=== PATIENT | female | born 1970 | race Caucasian/White ===

== ENCOUNTER 2016-08-14 10:34 | Inpatient (IN) | payer MEDICAID ==
[2016-08-14] MEDS ORDERED: VANCOMYCIN INJ 1 GM in SODIUM CHLORIDE 0.9% 250 ML IV ONE (11:00)
[2016-08-14] MEDS ORDERED: LACTATED RINGERS 1,000 ML IV ONE ×3 (11:15→15:52)
[2016-08-14] MEDS ORDERED: MIDAZOLAM 2 MG/2 ML VIAL IVP ONE (12:30)
[2016-08-14] MEDS ORDERED: GLYCOPYRROLATE 1 MG/5 ML VIAL IVP ONE (12:30)
[2016-08-14] MEDS ORDERED: ONDANSETRON 4 MG/2 ML VIAL IVP ONE (12:30)
[2016-08-14] MEDS ORDERED: LIDOCAINE-PF 2% 10 ML AMP SUBQ ONE (12:30)
[2016-08-14] MEDS ORDERED: fentaNYL 100 MCG/2 ML VIAL IVP ONE (12:30)
[2016-08-14] MEDS ORDERED: ROCURONIUM 50 MG/5 ML VIAL IVP ONE (12:30)
[2016-08-14] MEDS ORDERED: PROPOFOL 200 MG/20 ML VIAL IVP ONE (12:30)
[2016-08-14] MEDS ORDERED: ACETAMINOPHEN 1,000 MG/100 ML VIAL IV ONE (12:30)
[2016-08-14] MEDS ORDERED: NEOSTIGMINE 1 MG/1 ML 10 ML MDV IVP ONE (12:30)
[2016-08-14] MEDS ORDERED: DEXAMETHASONE 4 MG/ML VIAL IVP ONE (12:30)
[2016-08-14] MEDS ORDERED: ePHEDrine 50 MG/ML AMP IVP ONE (12:30)
[2016-08-14] MEDS ORDERED: SUCCINYLCHOLINE 200 MG/10 ML VIAL IVP ONE (12:30)
[2016-08-14] MEDS ORDERED: BUPIVACAINE 0.5% PF 30 ML VIAL SUBQ ONE ×2 (13:14)
[2016-08-14] MEDS ORDERED: LIDOCAINE 1%-EPI 1:100000 20 ML MDV SUBQ ONE ×2 (13:14)
[2016-08-14] MEDS ORDERED: KETOROLAC 15 MG/ML VIAL ONE ×2 (16:58→17:01)
[2016-08-14] MEDS: HYDROmorphone 1 MG/ML SYRINGE ONE ×2 (17:00→17:45)
[2016-08-14] MEDS ORDERED: ONDANSETRON 4 MG/2 ML VIAL ONE (17:14)
[2016-08-14] MEDS ORDERED: MORPHINE 2 MG/ML SYRINGE IVP PRN (17:54)
[2016-08-14] MEDS ORDERED: ONDANSETRON 4 MG/2 ML VIAL IVP PRN (17:54)
[2016-08-14] MEDS ORDERED: ACETAMINOPHEN 1,000 MG/100 ML 100 ML IV PRN (17:54)
[2016-08-14] MEDS ORDERED: ACETAMINOPHEN 325 MG TABLET PO PRN (17:54)
[2016-08-14] MEDS ORDERED: PROCHLORPERAZINE 10 MG/2 ML VIAL IVP PRN (17:54)
[2016-08-14] MEDS: D5.45NS W/20 MEQ KCL 1,000 ML IV SCH (20:04)
[2016-08-14] MEDS: HYDROcod/ACETAM 5/325 MG TABLET PO PRN (21:04)
[2016-08-14] MEDS: DOCUSATE SODIUM 250 MG CAPSULE PO SCH (21:04)
[2016-08-14] MEDS: buPROPion SR 100 MG TABLET PO SCH (21:04)
[2016-08-14] MEDS: SPIRONOLACTONE 25 MG TABLET PO SCH (21:05)
[2016-08-14] MEDS: hydrOXYzine PAMOATE 25 MG CAPSULE PO SCH (21:05)
[2016-08-14] MEDS: MINOCYCLINE HCL 100 MG PO SCH (21:06)
[2016-08-14] MEDS: metFORMIN 500 MG TABLET PO SCH (21:06)
[2016-08-14] MEDS: FAMOTIDINE 20 MG/50 ML 50 ML IV SCH (21:35)
[2016-08-14] MEDS: LORazepam 2 MG/ML SYRINGE IVP PRN (22:28)
[2016-08-14] MEDS: busPIRone 5 MG TABLET PO SCH (22:32)
[2016-08-14] MEDS: IBUPROFEN 600 MG TABLET PO PRN (22:33)
[2016-08-14] MEDS: GABAPENTIN 300 MG CAPSULE PO SCH (22:34)
[2016-08-14] MEDS: SODIUM CHLORIDE FLUSH 0.9% 10 ML SYRINGE IVP SCH (22:36)
[2016-08-14] MEDS ORDERED: CITALOPRAM 10 MG TABLET PO SCH (23:00)
[2016-08-15] MEDS: IBUPROFEN 600 MG TABLET PO PRN (00:36)
[2016-08-15] MEDS: LORazepam 2 MG/ML SYRINGE IVP PRN (01:43)
[2016-08-15] MEDS: D5.45NS W/20 MEQ KCL 1,000 ML IV SCH (06:03)
[2016-08-15] MEDS: GABAPENTIN 300 MG CAPSULE PO SCH (06:28)
[2016-08-15] MEDS: HYDROcod/ACETAM 5/325 MG TABLET PO PRN ×2 (06:29→11:28)
[2016-08-15] MEDS: SODIUM CHLORIDE FLUSH 0.9% 10 ML SYRINGE IVP SCH (06:41)
[2016-08-15] MEDS ORDERED: CETIRIZINE 10 MG TABLET PO SCH (09:00)
[2016-08-15] MEDS ORDERED: ARIPiprazole 5 MG TABLET PO SCH (09:00)
[2016-08-15] MEDS ORDERED: GLIMEPIRIDE 2 MG TABLET PO SCH (09:00)
[2016-08-15] MEDS ORDERED: CITALOPRAM 10 MG TABLET PO SCH (09:00)
[2016-08-15] MEDS ORDERED: lamoTRIgine 100 MG TABLET PO SCH (09:00)
[2016-08-15] MEDS ORDERED: busPIRone 5 MG TABLET PO SCH (09:00)
[2016-08-15] MEDS ORDERED: ENOXAPARIN 40 MG/0.4 ML SYRINGE SUBQ SCH (09:00)
[2016-08-15] MEDS ORDERED: ATENOLOL 25 MG TABLET PO SCH (09:00)
[2016-08-15] MEDS ORDERED: FEXOFENADINE 60 MG TABLET PO SCH (09:00)
[2016-08-15] MEDS: metFORMIN 500 MG TABLET PO SCH (09:15)
[2016-08-15] MEDS: hydrOXYzine PAMOATE 25 MG CAPSULE PO SCH (09:32)
[2016-08-15] MEDS: SPIRONOLACTONE 25 MG TABLET PO SCH (09:33)
[2016-08-15] MEDS: DOCUSATE SODIUM 250 MG CAPSULE PO SCH (09:34)
[2016-08-15] MEDS: buPROPion SR 100 MG TABLET PO SCH (09:35)
[2016-08-15] MEDS: busPIRone 5 MG TABLET PO SCH (09:35)
[2016-08-15] MEDS: FAMOTIDINE 20 MG/50 ML 50 ML IV SCH (09:42)
[2016-08-15] MEDS: MINOCYCLINE HCL 100 MG PO SCH (09:43)
== END 2016-08-15 12:20 | disposition home or self-care (01) | DRG 354 ==
PROC: 0WUF4JZ Supplement Abdominal Wall with Synthetic Substitute, Percutaneous Endoscopic Approach (ICD-10-PCS; principal; 2016-08-14 12:46)
DX: K43.2 Incisional hernia without obstruction or gangrene (principal); Z68.42 Body mass index [BMI] 45.0-49.9, adult; E11.43 Type 2 diabetes mellitus with diabetic autonomic (poly)neuropathy; K31.84 Gastroparesis; E66.9 Obesity, unspecified; R00.9 Unspecified abnormalities of heart beat; F31.9 Bipolar disorder, unspecified; F41.0 Panic disorder [episodic paroxysmal anxiety]; F98.8 Other specified behavioral and emotional disorders with onset usually occurring in childhood and adolescence; K42.9 Umbilical hernia without obstruction or gangrene; K66.0 Peritoneal adhesions (postprocedural) (postinfection); Z87.891 Personal history of nicotine dependence; Z85.828 Personal history of other malignant neoplasm of skin

== ENCOUNTER 2016-08-25 12:53 | Outpatient (CLI) | payer MEDICAID ==
[2016-08-25] MEDS ORDERED: IOPAMIDOL-300 100 ML VIAL IVP ONE (15:24)
[2016-08-25] MEDS ORDERED: IOPAMIDOL-300 50 ML VIAL PO ONE (15:24)
== END 2016-08-25 12:54 | disposition home or self-care (01) ==
DX: L02.211 Cutaneous abscess of abdominal wall (principal)
CPT/HCPCS: 74177; Q9967

== ENCOUNTER 2016-08-26 11:49 | Day surgery (SDC) | payer MEDICAID ==
[2016-08-26] MEDS ORDERED: LACTATED RINGERS 1,000 ML IV ONE ×2 (13:11→15:12)
[2016-08-26] MEDS ORDERED: ROCURONIUM 50 MG/5 ML VIAL IVP ONE (13:30)
[2016-08-26] MEDS ORDERED: ONDANSETRON 4 MG/2 ML VIAL IVP ONE (13:30)
[2016-08-26] MEDS ORDERED: PROPOFOL 200 MG/20 ML VIAL IVP ONE (13:30)
[2016-08-26] MEDS ORDERED: GLYCOPYRROLATE 1 MG/5 ML VIAL IVP ONE (13:30)
[2016-08-26] MEDS ORDERED: NEOSTIGMINE 1 MG/1 ML 10 ML MDV IVP ONE (13:30)
[2016-08-26] MEDS ORDERED: SUCCINYLCHOLINE 200 MG/10 ML VIAL IVP ONE (13:30)
[2016-08-26] MEDS ORDERED: LIDOCAINE-MPF 2% 5 ML VIAL IM ONE (13:30)
[2016-08-26] MEDS ORDERED: MIDAZOLAM 2 MG/2 ML VIAL IVP ONE (13:30)
[2016-08-26] MEDS ORDERED: fentaNYL 100 MCG/2 ML VIAL IVP ONE (13:30)
[2016-08-26] MEDS ORDERED: BUPIVACAINE 0.5% PF 30 ML VIAL INFIL ONE ×2 (13:54→14:17)
[2016-08-26] MEDS ORDERED: LIDOCAINE 1%-EPI 1:100000 20 ML MDV SUBQ ONE ×2 (13:55→14:17)
[2016-08-26] MEDS ORDERED: ONDANSETRON 4 MG/2 ML VIAL ONE (14:37)
[2016-08-26] MEDS ORDERED: PROMETHAZINE 25 MG/1 ML VIAL ONE (14:44)
[2016-08-26] MEDS ORDERED: oxyCOD/ACETAMIN 5 MG/325 MG TABLET PO ONE (15:55)
== END 2016-08-26 11:50 | disposition home or self-care (01) ==
PROC: 0J9800Z Drainage of Abdomen Subcutaneous Tissue and Fascia with Drainage Device, Open Approach (ICD-10-PCS; principal; 2016-08-26 13:00)
DX: L76.34 Postprocedural seroma of skin and subcutaneous tissue following other procedure (principal); Y83.8 Other surgical procedures as the cause of abnormal reaction of the patient, or of later complication, without mention of misadventure at the time of the procedure; E66.9 Obesity, unspecified; Z87.891 Personal history of nicotine dependence; Z68.43 Body mass index [BMI] 50.0-59.9, adult; G47.30 Sleep apnea, unspecified; E11.9 Type 2 diabetes mellitus without complications; Z79.84 Long term (current) use of oral hypoglycemic drugs; F41.9 Anxiety disorder, unspecified; F31.9 Bipolar disorder, unspecified; K21.9 Gastro-esophageal reflux disease without esophagitis; Z68.42 Body mass index [BMI] 45.0-49.9, adult
CPT/HCPCS: 10140; 76705; 87070; 87075; 87205; A9270; J7120

== ENCOUNTER 2016-10-12 15:10 | Outpatient (CLI) | payer MEDICAID ==
[2016-10-12] MEDS ORDERED: IOPAMIDOL-300 50 ML VIAL PO ONE (17:28)
[2016-10-12] MEDS ORDERED: IOPAMIDOL-300 100 ML VIAL IVP ONE (17:28)
== END 2016-10-12 15:11 | disposition home or self-care (01) ==
DX: E11.9 Type 2 diabetes mellitus without complications (principal)

== ENCOUNTER 2016-10-12 15:18 | Outpatient (CLI) | payer MEDICAID ==
[2016-10-12] MEDS ORDERED: IOPAMIDOL-300 100 ML VIAL IVP ONE (17:28)
[2016-10-12] MEDS ORDERED: IOPAMIDOL-300 50 ML VIAL PO ONE (17:28)
== END 2016-10-12 15:19 | disposition home or self-care (01) ==
DX: R10.9 Unspecified abdominal pain (principal); R23.4 Changes in skin texture; E11.9 Type 2 diabetes mellitus without complications
CPT/HCPCS: 36415; 74177; 80053; 83036; Q9967

== ENCOUNTER 2016-10-16 13:23 | Outpatient (CLI) | payer MEDICAID | END 2016-10-16 23:59 | DX: R06.09 Other forms of dyspnea (principal) ==

== ENCOUNTER 2017-01-06 13:03 | Outpatient (CLI) | payer MEDICAID ==
[2017-01-06 13:13] LABS: BASOPHILS % (AUTO) 0.7 %; EOSINOPHILS # (AUTO) 0.2 10^3/uL (0.0-0.7); EOSINOPHILS % (AUTO) 3.7 %; HCT - HEMATOCRIT 41.3 % (37.0-47.0); HGB - HEMOGLOBIN 14.1 g/dL (12.0-16.0); LYMPHOCYTES # (AUTO) 1.4 10^3/uL (1.5-3.5); LYMPHOCYTES % (AUTO) 21.4 %; MEAN CORPUSCULAR HEMOGLOBIN 32.1 pg (27.0-31.0); MEAN CORPUSCULAR HGB CONC 34.2 g/dL (32.0-36.0); MEAN CORPUSCULAR VOLUME 93.8 fL (81.0-99.0); MONOCYTES # (AUTO) 0.5 10^3/uL (0.0-1.0); MONOCYTES % (AUTO) 8.3 %; NEUTROPHILS # (AUTO) 4.2 10^3/uL (1.5-6.6); NEUTROPHILS % (AUTO) 65.9 %; RED BLOOD COUNT 4.41 10^6/uL (4.20-5.40); RED CELL DISTRIBUTION WIDTH 13.5 % (12.0-15.0); UNCORRECTED WHITE BLOOD COUNT 6.4 x10^3/uL; WHITE BLOOD COUNT 6.4 x10^3/uL (4.8-10.8)
== END 2017-01-06 13:04 | disposition home or self-care (01) ==
LOC: LAB 13:03
PROVIDERS: ATTEND Family Medicine
DX: R06.09 Other forms of dyspnea (principal)
CPT/HCPCS: 36415; 85025

== ENCOUNTER 2017-01-06 13:04 | Outpatient (CLI) | payer MEDICAID | END 2017-01-06 13:05 | disposition home or self-care (01) | LOC: RT 13:04 | PROVIDERS: ATTEND Family Medicine | DX: R06.09 Other forms of dyspnea (principal) | CPT/HCPCS: 36415; 85025; 94010; 94729 ==

== ENCOUNTER 2017-03-24 15:02 | Outpatient (CLI) | payer MEDICAID | END 2017-03-24 15:03 | disposition home or self-care (01) | LOC: SC 15:02 | PROVIDERS: ATTEND Nurse Practitioner Family | DX: G47.33 Obstructive sleep apnea (adult) (pediatric) (principal) | CPT/HCPCS: 99212; 99214 ==

== ENCOUNTER 2017-04-27 20:10 | Outpatient (CLI) | payer MEDICAID | END 2017-04-27 20:11 | disposition home or self-care (01) | LOC: LAB.WCP 20:10 | PROVIDERS: ATTEND Family Medicine | DX: N89.8 Other specified noninflammatory disorders of vagina (principal) | CPT/HCPCS: 87480; 87491; 87510; 87591; 87660 ==

== ENCOUNTER 2017-05-28 16:52 | Outpatient (CLI) | payer MEDICAID | END 2017-05-28 16:53 | disposition home or self-care (01) | LOC: LAB 16:52 | PROVIDERS: ATTEND Surgery | DX: Z01.812 Encounter for preprocedural laboratory examination (principal); K43.9 Ventral hernia without obstruction or gangrene | CPT/HCPCS: 36415; 80048; 85025 ==

== ENCOUNTER 2017-05-31 08:30 | Inpatient (IN) | payer MEDICAID ==
[2017-06-08] MEDS ORDERED: ceFAZolin 3 GM/20 ML SYRINGE ONE ×2 (10:59→12:06)
[2017-06-08] MEDS ORDERED: LACTATED RINGERS 1,000 ML IV ONE ×4 (11:49→22:07)
--- NOTE | 2017-06-08 12:59 | OPERATIVE REPORT ---
Operative Report - General Admit Date: 06/08/17 Planned Procedure: ventral hernia repair, transversus abdominus release, components separation Pre-Op Diagnosis: recurrent ventral hernia Procedure Performed: Excision of previous ventral mesh, lysis of adhesions, posterior components separation and vental hernia repair with mesh. - Procedure Note Primary Surgeon: becki Anesthesia Technique: General ET tube Drain/Tube Type: Prateek Dee round drain - Other Other Information/Narrative: INDICATION: This is a 47 year old female who presented with a recurrent ventral hernia. She has had an umbilical hernia repair many years ago; unsure if mesh was used, a right spegelian hernia repair with an underlay introperitoneal mesh , and recurrence at this site and laparoscopic removal of previous mesh and placement of intraperitoneal bridge mesh. She now has a recurrent midline ventral hernia whish causes her immobility secondary to pain. She lost 60 lbs in preparation for surgery, however, her BMI remains elevated at 49. Procedure: After obtaining informed consent the patient was taken to the operating room and a thoracic epidural inserted. She was subsequently intubated by anesthesia. 3 g of Ancef were administered. A alves catheter was inserted. She was then prepped and drapped in the usual sterile fashion and a timeout taken according to protocol. A midline incision was created above the umbilicus and extended approximately 12 cm in length and slightly below the umbilicus. The underliying hernia sac was encoutered. It was carefully entered avoiding underlying bowel. The hernia sac was dissected to the fascial edges anteriorly, then opened the length of the sac. Adherent bowel was dissected off the peritoneal surface and hernia sac. The hernia sac was then excised to the fascial margins. The Peritoneum was then grasped with a Thornwood clamp and incised exposing the rectus muscles.The retrorectal space was then created using a combination of blunt dissection and electrocautery. The space was created laterally approximately 15 cm anteriorly approximately 10 cm and posteriorly approximately 10 cm. This was performed on each side of the abdominal wall. On the left side of the abdominal wall was only able to achieve approximately 10 cm of lateral extension of the retrorectal space due to the previously repaired hernia and mesh at this location and extensive scarring.The peritoneum and posterior rectus sheath were then reapproximated using a running #2 PDS suture.A 30 cm x 30 cm polypropylene Mesh was then selected for placement. This was trimmed to accommodate the created space. This was then placed in the retrorectal space. The anterior rectus sheath was then grasped with Toñito clamps and the subcutaneous tissue was dissected off of the anterior rectus sheath for approximately 2 cm circumferentially. The mesh was then sutured through the anterior abdominal wall using interrupted 0 Prolene sutures in a circumferential fashion. The anterior rectus fascia was then reapproximated using interrupted 0 PDS sutures in a [id number] Fashion. A 15 Macanese round KAM drain was inserted through the lateral abdominal wall into the subcutaneous tissue.The subcutaneous tissue was reapproximated with interrupted 3-0 Vicryl sutures. The skin was closed with running 4-0 Monocryl. The KAM drain was secured into place with a 3-0 silk.A María VAC dressing was then applied. The patient was subsequently extubated and taken to the recovery room in stable condition. Estimated blood loss: 100 cc Complications: None Specimens: None
[2017-06-08] MEDS ORDERED: ROCURONIUM 50 MG/5 ML VIAL IVP ONE (13:00)
[2017-06-08] MEDS ORDERED: LIDOCAINE-MPF 2% 5 ML VIAL IM ONE (13:00)
[2017-06-08] MEDS ORDERED: NEOSTIGMINE 1 MG/1 ML 10 ML MDV IVP ONE (13:00)
[2017-06-08] MEDS ORDERED: PROPOFOL 200 MG/20 ML VIAL IVP ONE (13:00)
[2017-06-08] MEDS ORDERED: MIDAZOLAM 2 MG/2 ML VIAL IVP ONE (13:00)
[2017-06-08] MEDS ORDERED: METOCLOPRAMIDE 10 MG/2 ML VIAL IVP ONE (13:00)
[2017-06-08] MEDS ORDERED: GLYCOPYRROLATE 1 MG/5 ML VIAL IVP ONE (13:00)
[2017-06-08] MEDS ORDERED: fentaNYL 100 MCG/2 ML VIAL IVP ONE (13:00)
[2017-06-08] MEDS ORDERED: DEXAMETHASONE 4 MG/ML VIAL IVP ONE (13:00)
[2017-06-08] MEDS ORDERED: ONDANSETRON 4 MG/2 ML VIAL IVP ONE (13:00)
[2017-06-08] MEDS ORDERED: fent/BUPIV 2 MCG/0.125% 250 ML EP PRN ×2 (15:11→23:35)
[2017-06-08] MEDS ORDERED: diphenhydrAMINE INJ 50 MG/ML VIAL IVP PRN (15:11)
[2017-06-08] MEDS ORDERED: NALBUPHINE 20 MG/ML AMP IVP PRN (15:11)
[2017-06-08] MEDS ORDERED: SODIUM CHLORIDE FLUSH 0.9% 10 ML SYRINGE IVP PRN (17:06)
[2017-06-08] MEDS ORDERED: ONDANSETRON 4 MG/2 ML VIAL IVP PRN (17:06)
[2017-06-08] MEDS ORDERED: KETOROLAC 30 MG/ML VIAL ONE (17:14)
[2017-06-08] MEDS ORDERED: ACETAMINOPHEN 1,000 MG/100 ML 100 ML IV ONE (17:15)
[2017-06-08] MEDS: ACETAMINOPHEN 1,000 MG/100 ML 100 ML IV SCH (18:33)
[2017-06-08 20:23] LABS: HEMOGLOBIN A1C 0.59 g/dL; HEMOGLOBIN A1C % 6.3 % (4.6-6.2)
[2017-06-08] MEDS: METOPROLOL TARTRATE 25 MG TABLET PO SCH (21:08)
[2017-06-08] MEDS: ATORVASTATIN 40 MG TABLET PO SCH (21:12)
[2017-06-08] MEDS: SPIRONOLACTONE 25 MG TABLET PO SCH (21:12)
[2017-06-08] MEDS: SODIUM CHLORIDE FLUSH 0.9% 10 ML SYRINGE IVP SCH (21:13)
[2017-06-08] MEDS: traZODone 50 MG TABLET PO SCH (22:30)
[2017-06-08] MEDS: GABAPENTIN 300 MG CAPSULE PO SCH (22:36)
[2017-06-08] MEDS: INSULIN ASPART 300 UNIT/3 ML PEN SUBQ SCH (22:36)
[2017-06-08] MEDS: buPROPion SR 100 MG TABLET PO SCH (22:36)
[2017-06-08] MEDS: OXYBUTYNIN 5MG TABLET PO SCH (22:37)
[2017-06-08] MEDS: ePHEDrine 50 MG/ML VIAL IVP ONE ×2 (22:37→23:27)
[2017-06-08] MEDS: LACTATED RINGERS 1,000 ML IV SCH (22:41)
--- NOTE | 2017-06-08 23:20 | MISCELLANEOUS PROVIDER NOTE ---
Miscellaneous Provider Note - - Note: Anesthesia note. this post op patient with a thoracic epidural running developed hypotension. The epidural was stopped she was given a fluid bolus of 1000 ml of lactated ringers and two boluses of 25 mg of ephedrine. When the blood pressure increased the epidural was restarted at 6 ml per hr and the bolus decreased to 1 ml every 10 minutes. Orders were given to stop the epidural if bp drops below 90 systolic and to give a 500 ml fluid bolus if bp drops below 80 systolic.
[2017-06-09] MEDS: ACETAMINOPHEN 1,000 MG/100 ML 100 ML IV SCH ×4 (00:06→17:15)
[2017-06-09] MEDS: LACTATED RINGERS 1,000 ML IV SCH ×2 (03:51→17:24)
[2017-06-09] MEDS: SODIUM CHLORIDE FLUSH 0.9% 10 ML SYRINGE IVP SCH ×3 (05:40→13:26)
[2017-06-09] MEDS ORDERED: LACTATED RINGERS 1,000 ML IV ONE (08:56)
[2017-06-09] MEDS ORDERED: ENOXAPARIN 40 MG/0.4 ML SYRINGE SUBQ SCH (09:00)
[2017-06-09] MEDS: MORPHINE 2 MG/ML SYRINGE IVP PRN ×5 (09:16→17:24)
[2017-06-09] MEDS: OXYBUTYNIN 5MG TABLET PO SCH ×2 (09:17→21:39)
[2017-06-09] MEDS: METOPROLOL TARTRATE 25 MG TABLET PO SCH (09:18)
[2017-06-09] MEDS: GABAPENTIN 300 MG CAPSULE PO SCH ×2 (09:18→21:39)
[2017-06-09] MEDS: SPIRONOLACTONE 25 MG TABLET PO SCH ×2 (09:19→21:39)
[2017-06-09] MEDS: buPROPion SR 100 MG TABLET PO SCH ×2 (09:19→21:39)
[2017-06-09] MEDS: lamoTRIgine 100 MG TABLET PO SCH (09:19)
[2017-06-09] MEDS: ARIPiprazole 5 MG TABLET PO SCH (09:19)
[2017-06-09] MEDS: POLYETHYLENE GLYCOL 3350 17 GM PACKET PO SCH (09:20)
[2017-06-09] MEDS: INSULIN ASPART 300 UNIT/3 ML PEN SUBQ SCH ×4 (10:36→21:44)
[2017-06-09] MEDS: PRENATAL VITAMIN TABLET PO SCH (10:36)
--- NOTE | 2017-06-09 11:09 | PROVIDER PROGRESS NOTE ---
Subjective - General Admit Date: 06/08/17 Procedure Date: 06/08/17 Post Op Days: 1 - Review of Systems Wound/Incisions: positive: No drainage Drain Type: KAM Drain Output Description: 40 cc serosanguinous General: positive: Other (abdominal pain) Pulmonary: positive: No symptoms Cardiovascular: positive: No symptoms Gastrointestinal: positive: Nausea Genitourinary: positive: No symptoms - Other Other Information/Narrative: Patient hypotensive overnight secondary to epidural. Epidural has been held and BP slightly improved. One episode of nausea. Patient tolerated breakfast. Objective - Patient Data Reviewed Vital Signs: Yes Vital Signs: Vital Signs x48h Pulse BP BP Pulse Ox 06/09/17 09:18 96/44 L 06/09/17 07:15 82 87/55 L 99 06/09/17 07:10 85 86/50 L 99 06/09/17 07:05 82 79/50 L 99 06/09/17 07:01 84 81/47 L 98 06/09/17 06:55 82 82/48 L 99 06/09/17 06:50 82 81/51 L 99 06/09/17 06:45 87 80/45 L 100 06/09/17 06:40 82 80/52 L 99 06/09/17 06:35 84 84/49 L 99 06/09/17 06:30 85 80/48 L 99 06/09/17 06:26 84 86/50 L 99 06/09/17 06:20 86 78/41 L 99 06/09/17 06:15 86 84/47 L 99 06/09/17 06:10 88 82/57 L 98 06/09/17 06:05 86 81/47 L 98 06/09/17 06:00 83 83/49 L 98 06/09/17 05:55 86 82/48 L 98 06/09/17 05:50 92 81/54 L 99 06/09/17 05:45 87 84/48 L 98 06/09/17 05:40 88 81/52 L 98 06/09/17 05:35 89 82/49 L 98 06/09/17 05:30 89 85/51 L 98 06/09/17 05:25 87 80/46 L 97 06/09/17 05:20 89 83/49 L 97 06/09/17 05:15 86 79/53 L 97 06/09/17 05:10 90 82/48 L 97 06/09/17 05:05 89 82/51 L 97 06/09/17 05:01 88 84/49 L 97 06/09/17 04:55 90 81/50 L 97 06/09/17 04:51 89 82/50 L 97 06/09/17 04:45 89 87/48 L 98 06/09/17 04:40 91 81/47 L 95 06/09/17 04:35 92 81/52 L 96 06/09/17 04:30 92 80/48 L 94 06/09/17 04:25 91 82/51 L 96 06/09/17 04:20 90 84/49 L 97 06/09/17 04:15 90 84/51 L 97 06/09/17 04:10 96 92/58 L 98 06/09/17 04:05 95 90/54 L 99 06/09/17 04:01 86 86/54 L 98 06/09/17 03:55 91 82/47 L 99 06/09/17 03:50 86 89/54 L 100 06/09/17 03:45 86 87/54 L 100 06/09/17 03:40 85 86/52 L 100 06/09/17 03:34 89 86/51 L 99 06/09/17 03:30 92 80/48 L 99 06/09/17 03:25 86 80/48 L 98 06/09/17 03:20 90 84/49 L 97 06/09/17 03:15 90 87/52 L 98 06/09/17 03:10 86 87/54 L 99 Weight: Weight 06/07/17 06/08/17 06/09/17 23:59 23:59 23:59 Weight (kg) 113.6 kg Intake & Output: Intake and Output Totals x24h 06/07/17 06/08/17 06/09/17 23:59 23:59 23:59 Intake Total 816.667 Output Total 710 1100 Balance -710 -283.333 - Lab Results Other Lab Results: Lab Results x24hrs 06/09/17 06/08/17 06/08/17 Range/Units 09:11 21:42 19:41 POC Whole Bld Glucose 161 H 143 H (70 - 100) mg/dL Glycated Hemoglobin 6.3 H (4.6-6.2) % Estim Average Glucose 134 H (70-100) 06/08/17 06/08/17 06/08/17 Range/Units 17:37 15:00 13:46 POC Whole Bld Glucose 134 H 145 H 113 H (70 - 100) mg/dL Glycated Hemoglobin (4.6-6.2) % Estim Average Glucose (70-100) 06/08/17 Range/Units 12:26 POC Whole Bld Glucose 111 H (70 - 100) mg/dL Glycated Hemoglobin (4.6-6.2) % Estim Average Glucose (70-100) - Current Medications Current Medications: Current Medications Generic Name Dose Route Start Last Admin Trade Name Freq PRN Reason Stop Dose Admin Aripiprazole 10 mg 06/09/17 09:00 06/09/17 09:19 Abilify PO 10 mg DAILY LISA Administration Atorvastatin Calcium 20 mg 06/08/17 21:00 06/08/17 21:12 Lipitor PO Not Given QPM LISA Bupropion HCl 200 mg 06/08/17 21:00 06/09/17 09:19 Wellbutrin Sr PO 200 mg BID LISA Administration Enoxaparin Sodium 40 mg 06/09/17 09:00 06/09/17 09:17 Lovenox SUBQ 40 mg DAILY LISA Administration Gabapentin 600 mg 06/08/17 21:00 06/09/17 09:18 Neurontin PO 600 mg BID LISA Administration Lactated Ringer's 1,000 mls @ 100 mls/hr 06/08/17 18:00 06/09/17 03:51 Lr IV 100 mls/hr .Q10H LISA Administration Acetaminophen 100 mls @ 400 mls/hr 06/08/17 18:00 06/09/17 05:37 Ofirmev IV 400 mls/hr Q6H LISA Administration Insulin Aspart 2 - 10 unit 06/08/17 21:00 06/09/17 10:36 Novolog SUBQ 2 unit 0800,1200,1700,2100 LISA Administration Protocol Lamotrigine 400 mg 06/09/17 08:00 06/09/17 09:19 Lamictal PO 400 mg QDBREAKFAST LISA Administration Metoprolol Tartrate 25 mg 06/08/17 21:00 06/09/17 09:18 Lopressor PO Not Given BID LISA Morphine Sulfate 2 mg 06/09/17 08:56 06/09/17 09:16 Morphine IVP 2 mg Q2H PRN Administration PAIN Oxybutynin Chloride 5 mg 06/08/17 21:00 06/09/17 09:17 Ditropan PO 5 mg BID [facility] Administration Polyethylene Glycol 17 gm 06/09/17 09:00 06/09/17 09:20 Miralax PO Not Given DAILY [facility] Multivit/Folic Acid/Iron 1 tab 06/09/17 08:00 06/09/17 10:36 Trinatal Rx 1 PO 1 tab DAILYWM [facility] Administration Ranitidine HCl 600 mg 06/08/17 21:00 06/09/17 09:18 Zantac PO 600 mg BID [facility] Administration Sodium Chloride 10 ml 06/08/17 22:00 06/09/17 05:40 Normal Saline Flush 0.9% IVP Not Given Q8HR [facility] Spironolactone 50 mg 06/08/17 21:00 06/09/17 09:19 Aldactone PO 50 mg BID [facility] Administration Trazodone HCl 100 mg 06/08/17 21:00 06/08/17 22:30 Desyrel PO Not Given QPM [facility] - Physical Exam Wound/Incisions: positive: Dressing dry and intact General Appearance: positive: No acute distress Respiratory: positive: No respiratory distress Cardiovascular: positive: Regular rate & rhythm Abdomen: positive: Other (soft, non-distended. prevena vac in place. KAM in place with serosanguinous drainage) Extremities: positive: No pedal edema Impression/Plan - Problem List Problem List: s/p posterior components separation and ventral hernia repair with mesh POD 1 - DC epidural secondary to hypotension. Start Morphine 2mg Q2H. Continue Tylenol and Torodol. - DC alves - Patient must ambulate today. Importance discussed with patient and RN. - SSI for glucose control. Oral meds will resume today - BP meds held for hypotension - Lovenox for DVT prophylaxis.
[2017-06-09] MEDS: GLIMEPIRIDE 2 MG TABLET PO SCH (12:04)
[2017-06-09] MEDS: KETOROLAC 30 MG/ML VIAL IVP PRN ×2 (13:25→21:44)
[2017-06-09] MEDS: ATORVASTATIN 40 MG TABLET PO SCH (21:38)
[2017-06-09] MEDS: traZODone 50 MG TABLET PO SCH (21:39)
[2017-06-10] MEDS ORDERED: SODIUM CHLORIDE FLUSH 0.9% 10 ML SYRINGE IVP ONE (00:35)
[2017-06-10] MEDS: ACETAMINOPHEN 1,000 MG/100 ML 100 ML IV SCH ×2 (00:44→06:23)
[2017-06-10] MEDS: LACTATED RINGERS 1,000 ML IV SCH (06:23)
[2017-06-10] MEDS: SODIUM CHLORIDE FLUSH 0.9% 10 ML SYRINGE IVP SCH (06:24)
[2017-06-10] MEDS: KETOROLAC 30 MG/ML VIAL IVP PRN (07:51)
--- NOTE | 2017-06-10 09:28 | Discharge Plan ---
Discharge Plan Disposition: 01 Home, Self Care Condition: Good Diet: Diabetic Activity Restrictions: No Restrictions Shower Restrictions: Yes (cover incision until vac dressing removed) Driving Restrictions: Yes (not while on narcotics) Assistance Devices: Walker Weight Bearing: Full Weight Instruction Topics: Hernia Surg Repair Additional Instructions or Follow Up instructions: Keep vac dressing covered while showering. Once vac dressing and KAM drain removed OK to shower and get incision wet. Monitor KAM drain output amount daily. Wash hands prior to touching incision. Once vac dressing removed cover dressing with dry gauze and change daily. No pool or sauna for 2 weeks post op. Wear abdominal binder during day for 2 weeks post op. No strenuous activity or lifting anything greater than 10 lbs for 6 weeks post op. Return to my office for redness around incision, drainage from incision, increasing abdominal pain, fever or chills. No Smoking: If you smoke, Please STOP! Call for help. Follow-up with: HENRI ARMANDO MD [Provider Admit Priv/Credential] - 06/14/17 10:30 am ( for vac removal and KAM drain removal)
[2017-06-10] MEDS: POLYETHYLENE GLYCOL 3350 17 GM PACKET PO SCH (10:02)
[2017-06-10] MEDS: GLIMEPIRIDE 2 MG TABLET PO SCH (10:02)
[2017-06-10] MEDS: PRENATAL VITAMIN TABLET PO SCH (10:02)
[2017-06-10] MEDS: GABAPENTIN 300 MG CAPSULE PO SCH (10:02)
[2017-06-10] MEDS: lamoTRIgine 100 MG TABLET PO SCH (10:03)
[2017-06-10] MEDS: OXYBUTYNIN 5MG TABLET PO SCH (10:03)
[2017-06-10] MEDS: buPROPion SR 100 MG TABLET PO SCH (10:03)
[2017-06-10] MEDS: ARIPiprazole 5 MG TABLET PO SCH (10:03)
[2017-06-10] MEDS: SPIRONOLACTONE 25 MG TABLET PO SCH (10:03)
[2017-06-10] MEDS: INSULIN ASPART 300 UNIT/3 ML PEN SUBQ SCH (10:06)
--- NOTE | 2017-06-10 11:25 | DISCHARGE SUMMARY ---
Discharge Summary Admit Date: 06/08/17 Discharge Date: 06/10/17 Discharging Provider: Jade Condition at Discharge: Good Discharge Disposition: 01 Home, Self Care - DIAGNOSES Admission Diagnoses: recurrent ventral hernia Discharge Diagnoses with Status of Each Condition: recurrent ventral hernia - HPI History of Present Illness: This is a 47 year old female with 3 prior abdominal hernia repair who presents with pain associated with a recurrent ventral hernia. She underwent an elective posterior components separation, excision of old mesh and ventral hernia repair with a sublay mesh. - HOSPITAL COURSE Hospital Course: The patient was transferred to the floor post operatively with an epidural and alves in place. She also had a prevena vac and KAM abdominal drain in place. She was hypotensive on POD 0 secondary to the epidural and this was discontinued. The epidural catheter and alves catheter were removed on POD 1. She was tolerating a regular diet and ambulating independently by post operative day 2. Her pain was well controlled on oral pain meds. - ALLERGIES Allergies/Adverse Reactions: Allergies Allergy/AdvReac Type Severity Reaction Status Date / Time adhesive tape Allergy Rash Verified 06/08/17 11:51 erythromycin base Allergy Rash Verified 05/28/17 16:32 Penicillins Allergy Anaphylaxis Verified 05/28/17 16:32 sulfamethoxazole Allergy Unknown Verified 05/28/17 16:32 [From Bactrim] trimethoprim [From Bactrim] Allergy Unknown Verified 05/28/17 16:32 - MEDICATIONS Home Medications: Ambulatory Orders Medication Instructions Recorded Confirmed Docusate Sodium [Dss] 250 mg PO BID 02/15/15 06/08/17 Glimepiride 2 mg PO DAILY 02/15/15 06/08/17 lamoTRIgine [Lamictal] 400 mg PO QDBREAKFAST 02/15/15 06/08/17 raNITIdine [Zantac] 600 mg PO BID 02/15/15 06/08/17 ARIPiprazole [Abilify] 10 mg PO DAILY 05/28/17 06/08/17 Gabapentin [Neurontin] 600 mg PO BID 05/28/17 06/08/17 Metoprolol Tartrate [Lopressor] 25 mg PO BID 05/28/17 06/08/17 Oxybutynin [Ditropan] 5 mg PO BID 05/28/17 06/08/17 Spironolactone [Aldactone] 50 mg PO BID 05/28/17 06/08/17 Trazodone HCl 100 mg PO QPM 06/07/17 06/08/17 buPROPion [Wellbutrin Sr] 200 mg PO BID 06/07/17 06/08/17 Atorvastatin Calcium 20 mg PO QPM 06/08/17 06/08/17 Pnv95/Ferrous Fumarate/FA 1 tab PO DAILY 06/08/17 06/08/17 [ Tablet] Miscellaneous Medical Supply 1 each DAILY #1 each 06/10/17 [Tablet Cutter] Walker [Ultra-Light Rollator] 1 each DAILY #1 each 06/10/17 - PHYSICAL EXAM AT DISCHARGE General Appearance: positive: No acute distress Respiratory: positive: No respiratory distress Cardiovascular: positive: Regular rate & rhythm Abdomen: positive: Non-tender, No distention Extremities: positive: No pedal edema Neurologic/Psychiatric: positive: Oriented x3 - FOLLOW UP Follow Up: Dr. Hansen for RN visit WednesdayJun 14. - TIME SPENT Time Spent in Discharge (Minutes): 30
[2017-06-10 11:52] VITALS: BP 107/72
== END 2017-06-10 13:44 | disposition home or self-care (01) | DRG 354 ==
LOC: MS3 06-08 10:57
PROVIDERS: ADMIT Surgery; ATTEND Surgery
PROC: 0WUF0JZ Supplement Abdominal Wall with Synthetic Substitute, Open Approach (ICD-10-PCS; principal; 2017-06-08 12:00)
DX: K43.2 Incisional hernia without obstruction or gangrene (principal); Z68.42 Body mass index [BMI] 45.0-49.9, adult; K66.0 Peritoneal adhesions (postprocedural) (postinfection); I95.2 Hypotension due to drugs; T50.905A Adverse effect of unspecified drugs, medicaments and biological substances, initial encounter; Y92.239 Unspecified place in hospital as the place of occurrence of the external cause; E66.01 Morbid (severe) obesity due to excess calories; G47.33 Obstructive sleep apnea (adult) (pediatric); F31.9 Bipolar disorder, unspecified; E11.42 Type 2 diabetes mellitus with diabetic polyneuropathy; Z79.84 Long term (current) use of oral hypoglycemic drugs
CPT/HCPCS: 36415; 83036

== ENCOUNTER 2017-06-07 13:42 | Outpatient (CLI) | payer MEDICAID ==
[2017-06-07 14:03] LABS: BASOPHILS # (AUTO) 0.1 10^3/uL (0.0-0.1); EOSINOPHILS # (AUTO) 0.2 10^3/uL (0.0-0.7); EOSINOPHILS % (AUTO) 3.8 %; HGB - HEMOGLOBIN 13.5 g/dL (12.0-16.0); LYMPHOCYTES # (AUTO) 1.4 10^3/uL (1.5-3.5); LYMPHOCYTES % (AUTO) 24.9 %; MEAN CORPUSCULAR HEMOGLOBIN 33.6 pg (27.0-31.0); MEAN CORPUSCULAR HGB CONC 34.7 g/dL (32.0-36.0); MEAN CORPUSCULAR VOLUME 96.8 fL (81.0-99.0); MEAN PLATELET VOLUME 6.7 fL (7.9-10.8); MONOCYTES # (AUTO) 0.5 10^3/uL (0.0-1.0); MONOCYTES % (AUTO) 8.7 %; NEUTROPHILS # (AUTO) 3.5 10^3/uL (1.5-6.6); NEUTROPHILS % (AUTO) 61.6 %; NUCLEATED RED BLOOD CELLS AUTO 0.1 /100WBC; RED BLOOD COUNT 4.03 10^6/uL (4.20-5.40); RED CELL DISTRIBUTION WIDTH 13.5 % (12.0-15.0); UNCORRECTED WHITE BLOOD COUNT 5.6 x10^3/uL; WHITE BLOOD COUNT 5.6 x10^3/uL (4.8-10.8)
[2017-06-07 14:12] LABS: CALCIUM 9.5 mg/dL (8.5-10.3); CREATININE 0.9 mg/dL (0.4-1.0)
== END 2017-06-07 13:43 | disposition home or self-care (01) ==
LOC: LAB 13:42
PROVIDERS: ATTEND Surgery
DX: Z01.812 Encounter for preprocedural laboratory examination (principal); K43.2 Incisional hernia without obstruction or gangrene
CPT/HCPCS: 36415; 80048; 85025

== ENCOUNTER 2017-07-13 15:51 | Outpatient (CLI) | payer MEDICAID ==
[2017-07-13 19:15] LABS: BASOPHILS # (AUTO) 0.1 10^3/uL (0.0-0.1); BASOPHILS % (AUTO) 0.9 %; EOSINOPHILS # (AUTO) 0.4 10^3/uL (0.0-0.7); EOSINOPHILS % (AUTO) 5.8 %; HGB - HEMOGLOBIN 13.1 g/dL (12.0-16.0); LYMPHOCYTES # (AUTO) 1.9 10^3/uL (1.5-3.5); LYMPHOCYTES % (AUTO) 24.5 %; MEAN CORPUSCULAR HEMOGLOBIN 33.2 pg (27.0-31.0); MEAN CORPUSCULAR HGB CONC 33.4 g/dL (32.0-36.0); MEAN CORPUSCULAR VOLUME 99.3 fL (81.0-99.0); MEAN PLATELET VOLUME 6.7 fL (7.9-10.8); MONOCYTES # (AUTO) 0.6 10^3/uL (0.0-1.0); MONOCYTES % (AUTO) 8.2 %; NEUTROPHILS # (AUTO) 4.6 10^3/uL (1.5-6.6); NEUTROPHILS % (AUTO) 60.6 %; PLT - PLATELET COUNT 526 10^3/uL (130-450); RED BLOOD COUNT 3.94 10^6/uL (4.20-5.40); RED CELL DISTRIBUTION WIDTH 13.7 % (12.0-15.0); WHITE BLOOD COUNT 7.7 x10^3/uL (4.8-10.8)
[2017-07-13 19:31] LABS: CALCIUM 9.2 mg/dL (8.5-10.3); CREATININE 1.1 mg/dL (0.4-1.0)
== END 2017-07-13 15:52 | disposition home or self-care (01) ==
LOC: LAB.WCP 15:51
PROVIDERS: ATTEND Physician Assistant Medical
DX: I95.9 Hypotension, unspecified (principal)
CPT/HCPCS: 36415; 80048; 85025

== ENCOUNTER 2017-09-15 11:42 | Outpatient (CLI) | payer MEDICAID ==
[2017-09-15 19:02] LABS: BASOPHILS % (AUTO) 1.1 %; EOSINOPHILS # (AUTO) 0.2 10^3/uL (0.0-0.7); EOSINOPHILS % (AUTO) 4.6 %; HGB - HEMOGLOBIN 13.5 g/dL (12.0-16.0); LYMPHOCYTES # (AUTO) 1.2 10^3/uL (1.5-3.5); LYMPHOCYTES % (AUTO) 26.6 %; MEAN CORPUSCULAR HEMOGLOBIN 32.9 pg (27.0-31.0); MEAN CORPUSCULAR HGB CONC 32.3 g/dL (32.0-36.0); MEAN PLATELET VOLUME 6.8 fL (7.9-10.8); MONOCYTES # (AUTO) 0.4 10^3/uL (0.0-1.0); MONOCYTES % (AUTO) 8.4 %; NEUTROPHILS # (AUTO) 2.7 10^3/uL (1.5-6.6); NEUTROPHILS % (AUTO) 59.3 %; PLT - PLATELET COUNT 350 10^3/uL (130-450); RED CELL DISTRIBUTION WIDTH 14.4 % (12.0-15.0); WHITE BLOOD COUNT 4.5 x10^3/uL (4.8-10.8)
[2017-09-15 19:26] LABS: HB2 TOTAL 14.4 g/dL; HEMOGLOBIN A1C 0.58 g/dL; HEMOGLOBIN A1C % 5.8 % (4.6-6.2)
[2017-09-15 19:28] LABS: ALBUMIN 3.9 g/dL (3.2-5.5); ALBUMIN/GLOBULIN RATIO 1.5 (1.0-2.2); ALKALINE PHOSPHATASE 78 IU/L (42-121); ALT ALANINE AMINOTRANSFERASE 26 IU/L (10-60); AST ASPARTATE AMINOTRANSFERASE 23 IU/L (10-42); BILIRUBIN,TOTAL 0.6 mg/dL (0.2-1.0); BUN - BLOOD UREA NITROGEN 7 mg/dL (6-20); CALCIUM 8.9 mg/dL (8.5-10.3); CARBON DIOXIDE - CO2 25 mmol/L (21-32); CHLORIDE 104 mmol/L (101-111); CHOL/HDL RATIO 6.4 (<4.4); CHOLESTEROL 219 mg/dL; CREATININE 0.8 mg/dL (0.4-1.0); GFR - MDRD 78 (>89); GLUCOSE 118 mg/dL (70-100); HDL CHOLESTEROL 34 mg/dL; LDL CHOLESTEROL,CALCULATED 154 mg/dL; LDL/HDL RATIO 4.5 (<4.4); SODIUM 138 mmol/L (135-145); TOTAL PROTEIN 6.5 g/dL (6.7-8.2); VLDL CHOLESTEROL 31 mg/dL
== END 2017-09-15 11:43 | disposition home or self-care (01) ==
LOC: LAB.WCP 11:42
PROVIDERS: ATTEND Family Medicine
DX: E11.9 Type 2 diabetes mellitus without complications (principal)
CPT/HCPCS: 36415; 80053; 80061; 83036; 83721; 85025

== ENCOUNTER 2017-11-09 14:19 | Outpatient (CLI) | payer MEDICAID ==
--- NOTE | 2017-11-09 17:32 | Mammography Report ---
DIGITAL DIAGNOSTIC BILATERAL MAMMOGRAM: 11/09/2017 CLINICAL INDICATION: Diffuse bilateral pain. TECHNIQUE: Bilateral CC, MLO, true lateral, laterally exaggerated craniocaudal views. This is the patient's baseline mammogram. FINDINGS: The breasts demonstrate scattered fibroglandular densities bilaterally. Coarse and punctate, typically benign calcifications are present. No suspicious masses, clustered microcalcifications, or regions of architectural distortion are identified. IMPRESSION: BENIGN FINDINGS. RECOMMENDATION: Routine annual screening unless otherwise clinically indicated. BI-RADS category 2 benign findings. STANDARD QUALIFYING STATEMENTS 1. This examination was reviewed with the aid of Computed-Aided Detection (CAD). 2. A negative or benign imaging report should not delay biopsy if clinically suspicious findings are present. Consider surgical consultation if warranted. More than 5% of cancers are not identified by imaging. 3. Dense breasts may obscure an underlying neoplasm. TD: 11/09/2017 15:18
== END 2017-11-09 14:20 | disposition home or self-care (01) ==
LOC: DI 14:19
PROVIDERS: ATTEND Family Medicine
DX: N64.4 Mastodynia (principal)
CPT/HCPCS: 77066

== ENCOUNTER 2018-04-18 08:00 | Outpatient (CLI) | payer MEDICAID ==
[2018-04-18 18:33] LABS: BASOPHILS % (AUTO) 0.9 %; EOSINOPHILS # (AUTO) 0.4 10^3/uL (0.0-0.7); EOSINOPHILS % (AUTO) 7.5 %; HGB - HEMOGLOBIN 12.5 g/dL (12.0-16.0); LYMPHOCYTES # (AUTO) 1.1 10^3/uL (1.5-3.5); LYMPHOCYTES % (AUTO) 20.7 %; MEAN CORPUSCULAR HEMOGLOBIN 34.1 pg (27.0-31.0); MEAN CORPUSCULAR HGB CONC 33.4 g/dL (32.0-36.0); MEAN CORPUSCULAR VOLUME 102.1 fL (81.0-99.0); MEAN PLATELET VOLUME 7.2 fL (7.9-10.8); MONOCYTES # (AUTO) 0.5 10^3/uL (0.0-1.0); MONOCYTES % (AUTO) 10.6 %; NEUTROPHILS # (AUTO) 3.1 10^3/uL (1.5-6.6); NEUTROPHILS % (AUTO) 60.3 %; PLT - PLATELET COUNT 269 10^3/uL (130-450); RED BLOOD COUNT 3.66 10^6/uL (4.20-5.40); RED CELL DISTRIBUTION WIDTH 14.9 % (12.0-15.0); WHITE BLOOD COUNT 5.1 x10^3/uL (4.8-10.8)
[2018-04-18 19:05] LABS: ALBUMIN 3.4 g/dL (3.2-5.5); ALBUMIN/GLOBULIN RATIO 1.2 (1.0-2.2); ALKALINE PHOSPHATASE 88 IU/L (42-121); ALT ALANINE AMINOTRANSFERASE 22 IU/L (10-60); AST ASPARTATE AMINOTRANSFERASE 23 IU/L (10-42); BILIRUBIN,TOTAL 0.4 mg/dL (0.2-1.0); BUN - BLOOD UREA NITROGEN 15 mg/dL (6-20); CALCIUM 8.6 mg/dL (8.5-10.3); CARBON DIOXIDE - CO2 23 mmol/L (21-32); CHLORIDE 106 mmol/L (101-111); CHOL/HDL RATIO 4.7 (<4.4); CHOLESTEROL 200 mg/dL; GFR - MDRD 60 (>89); GLUCOSE 108 mg/dL (70-100); HDL CHOLESTEROL 43 mg/dL; LDL CHOLESTEROL,CALCULATED 128 mg/dL; SODIUM 139 mmol/L (135-145); TOTAL PROTEIN 6.3 g/dL (6.7-8.2); VLDL CHOLESTEROL 29 mg/dL
[2018-04-18 19:33] LABS: HB2 TOTAL 12.6 g/dL; HEMOGLOBIN A1C 0.46 g/dL; HEMOGLOBIN A1C % 5.5 % (4.6-6.2)
== END 2018-04-18 08:01 | disposition home or self-care (01) ==
LOC: LAB.WCP 08:00
PROVIDERS: ATTEND Family Medicine
DX: E11.9 Type 2 diabetes mellitus without complications (principal)
CPT/HCPCS: 36415; 80053; 80061; 83036; 83721; 84443; 85025

== ENCOUNTER 2018-07-26 13:08 | Outpatient (CLI) | payer MEDICAID | END 2018-07-26 13:09 | disposition home or self-care (01) | LOC: SC 13:08 | PROVIDERS: ATTEND Nurse Practitioner Family | DX: G47.33 Obstructive sleep apnea (adult) (pediatric) (principal); G47.00 Insomnia, unspecified | CPT/HCPCS: 99212; 99215 ==

== ENCOUNTER 2018-09-20 08:00 | Outpatient (CLI) | payer MEDICAID ==
[2018-09-20 20:21] LABS: HB2 TOTAL 14.9 g/dL; HEMOGLOBIN A1C 0.72 g/dL; HEMOGLOBIN A1C % 6.6 % (4.6-6.2)
== END 2018-09-20 23:59 | disposition home or self-care (01) ==
LOC: LAB.WCP 08:00
PROVIDERS: ATTEND Family Medicine
DX: E11.9 Type 2 diabetes mellitus without complications (principal)
CPT/HCPCS: 36415; 83036

== ENCOUNTER 2019-02-07 08:00 | Outpatient (CLI) | payer MEDICAID ==
[2019-02-07 12:25] LABS: HB2 TOTAL 15.2 g/dL; HEMOGLOBIN A1C 0.89 g/dL; HEMOGLOBIN A1C % 7.5 % (4.6-6.2)
== END 2019-02-07 23:59 | disposition home or self-care (01) ==
LOC: LAB.WCP 08:00
PROVIDERS: ATTEND Family Medicine
DX: R60.9 Edema, unspecified (principal); E11.9 Type 2 diabetes mellitus without complications
CPT/HCPCS: 36415; 80048; 83036

== ENCOUNTER 2019-05-22 14:26 | Outpatient (CLI) | payer MEDICAID ==
[2019-05-22 19:23] LABS: HB2 TOTAL 14.9 g/dL; HEMOGLOBIN A1C 1.22 g/dL; HEMOGLOBIN A1C % 9.6 % (4.6-6.2)
== END 2019-05-22 23:59 | disposition home or self-care (01) ==
LOC: LAB.WCP 14:26
PROVIDERS: ATTEND Family Medicine
DX: E11.9 Type 2 diabetes mellitus without complications (principal)
CPT/HCPCS: 36415; 83036

== ENCOUNTER 2019-05-31 14:19 | Outpatient (CLI) | payer MEDICAID | END 2019-05-31 23:59 | disposition home or self-care (01) | LOC: LAB.R 14:19 | PROVIDERS: ATTEND Family Medicine | DX: S81.809A Unspecified open wound, unspecified lower leg, initial encounter (principal) | CPT/HCPCS: 87070; 87205 ==

== ENCOUNTER 2019-08-22 13:37 | Outpatient (CLI) | payer MEDICAID ==
--- NOTE | 2019-08-22 15:05 | SLEEP CARE CONSULTATION ---
Information from patient questionnaire entered by Renee Kilgore. I have reviewed and concur with the information entered by Renee Kilgore. This document represents the service I personally performed and the decisions made by me, Indira Barriga, RN, MSN, B[employer]PECTOR. History of Present Illness Previous diagnosis: Extremely Severe, Obstructive Sleep Apnea-Hypopnea Syndrome AHI: 147 Reason for follow up: first compliance after device update, annual Equipment type: CPAP Equipment obtained from: [employer] Mask style: Nasal (Dreamwear) Mask brand: Respironics Backup mask available: Yes (old ) Last cushion change: 1-2 months Prior sleep studies: Yes CPAP Compliance Data - Data Reviewed with Patient Average duration of nightly device use: 11h 9m Compliance rate %: 80 Current pressure setting (cmH2O): 14 Humidity setting: off Average residual AHI: 1.6 Subjective Patient concerns: reports: dry mouth, nose, throat (dry nose and mouth is rare. ). denies: aerophagia, mask discomfort, air blowing in eyes, mask leak noise, condensation in mask/hose, nasal congestion Observed to snore while using device: No Current pressure setting perceived as: comfortable On therapy, patient: reports: sleeping better, awakening more refreshed, being more awake and alert during the day, more rested overall. denies: drowsiness while driving Initial Pray Sleepiness Scale score: 8 Current Pray Sleepiness Scale score: 6 Allergies and Home Medications Home medication list reviewed: Yes (see changes ) Allergy and home medication list: Medication Name (generic/name brand) Strength & Dosage Lamictal (Lamotrigine) 200mg tab two daily Neurontin (Gabapentin) 300mg cap 3 tab twice daily Aldactone (Spironolactone) 100 mg tab one twice daily Glimepiride 4 mg tab one daily Metoprolol Tartrate 25mg tab one twice daily Detrol LA (Tolterodine Tartrate) 4mg cap one daily Trazodone HCL 100mg tab 1-2 daily at bedtime as needed Aripiprazole 15mg tab one daily Bupropion HCL ER 200mg tab one daily Metrozidazole 0.75% External Cream Apply to effected area daily Bactroban Ointment (Mupirocin Oint) Apply to effected area daily as needed Clobetasol Propionate 0.05% Ext. Ointment Apply to effected area daily as needed Elidel 1% External Cream Apply as directed Methocarbamol 500mg tab 1-2 q6hr as needed Tramadol HCL 50mg tab one as needed takes rarely Hydroxyzine Sammi 50mg tab one q6hr as needed Docusate Sodium 250mg cap one three times daily Tablet Tab one daily Ranitidine HCL 150 mg tab 1 tab twice daily TRi Chromium Picolinate Cap one twice daily metformin 1000mg 1 tab twice daily Anti-Itch Maximum Strength (Hydrocortisone) 1% Apply to affected area as needed Allergy List Penicillin Erythromycin Bactrim (Sulfamethoxazole-Trimethoprim) Review of Systems Review of systems same as previous: No (diabetes out of control, weight gain and edema ) Physical Exam Blood Pressure: 110/76 Cuff size: long Heart Rate: 100 O2 Saturation: 97 Height: 5 ft 5 in Weight: 326 lb 12.8 oz Weight change since last visit: gained 16 pounds Body Mass Index: 54.3 BMI Classification: Morbidly Obese Impression and Plan 1. Obstructive Sleep Apnea-Hypopnea Syndrome, extremely severe, with good treatment compliance and good apnea control. On CPAP therapy, the patient has better sleep quality and is more rested overall. She was to update her CPAP at last visit in June 2018 but was not updated until recently by new DME [facility]. She is pleased with new DME. Her first attempt to transfer to another DME, insurance was not covered. She is pleased with new CPAP function and quietness. Since she does not use the humidity, if dryness symptoms increase, she is advised to start the humidifier. I offered her saline nasal spray but unable to tolerate nasal sprays due to sensitive gag reflux. She can also use nasal cream such AYR as needed for nasal moisture. She has gained weight and aware of health risks of morbid obesity. She would like to lose weight. I explained how significant weight loss will reduce her apnea severity and CPAP pressure requirements. Thus symptoms to report for future pressure adjustment discussed. She is using CPAP about 11 hours a day on average. Last year she averaged 9.4 hours. She reports that she is not sleeping all that time. I explained that most people require 7-9 hours of sleep for optimal mental and physical function. She states that she works with a counselor / psychiatrist for depression and her medical provider for other medical problems. She feels she is only asleep about 9 hours of that time. She was advised if needs more sleep to contact her PCP to rule out medical cause and agreed with plan. Patient's apnea severity and rationale for treatment to reduce apnea, improve sleep quality and reduce cardiovascular and cerebrovascular events was reviewed. I also reviewed the benefit of consistent device use of CPAP for hypertension, diabetes, depression/anxiety. * Continue CPAP pressure at 14 cmH2O * start humidity if needed. * Notify me if snoring with mask or feeling that the pressure is too much or too little * Attempt to lose weight * Call this office if any problems using CPAP * Return for follow up in 1 year , or sooner if concerns arise I spent 100% of this visit face to face with the patient with greater than 50% of this was spent time counseling the patient and coordination of care.
[2019-08-22 15:06] VITALS: BP 110/76
== END 2019-08-22 13:38 | disposition home or self-care (01) ==
LOC: SC 13:37
PROVIDERS: ATTEND Nurse Practitioner Family
DX: G47.33 Obstructive sleep apnea (adult) (pediatric) (principal); E66.01 Morbid (severe) obesity due to excess calories; Z68.43 Body mass index [BMI] 50.0-59.9, adult
CPT/HCPCS: 99212; 99214

== ENCOUNTER 2020-04-25 08:00 | Outpatient (CLI) | payer MEDICAID ==
[2020-04-25 18:34] LABS: BASOPHILS # (AUTO) 0.1 10^3/uL (0.0-0.1); BASOPHILS % (AUTO) 1.3 %; EOSINOPHILS # (AUTO) 0.6 10^3/uL (0.0-0.7); EOSINOPHILS % (AUTO) 8.8 %; HGB - HEMOGLOBIN 15.6 g/dL (12.0-16.0); LYMPHOCYTES # (AUTO) 0.9 10^3/uL (1.5-3.5); LYMPHOCYTES % (AUTO) 14.2 %; MEAN CORPUSCULAR HEMOGLOBIN 31.3 pg (27.0-31.0); MEAN CORPUSCULAR HGB CONC 32.4 g/dL (32.0-36.0); MEAN CORPUSCULAR VOLUME 96.6 fL (81.0-99.0); MEAN PLATELET VOLUME 9.1 fL (7.9-10.8); MONOCYTES # (AUTO) 0.6 10^3/uL (0.0-1.0); MONOCYTES % (AUTO) 10.2 %; NEUTROPHILS # (AUTO) 4.1 10^3/uL (1.5-6.6); PLT - PLATELET COUNT 356 10^3/uL (130-450); RED BLOOD COUNT 4.98 10^6/uL (4.20-5.40); RED CELL DISTRIBUTION WIDTH 13.6 % (12.0-15.0); WHITE BLOOD COUNT 6.3 x10^3/uL (4.8-10.8)
[2020-04-25 18:57] LABS: ALBUMIN 4.2 g/dL (3.2-5.5); ALBUMIN/GLOBULIN RATIO 1.2 (1.0-2.2); ALKALINE PHOSPHATASE 113 IU/L (42-121); ALT ALANINE AMINOTRANSFERASE 64 IU/L (10-60); AST ASPARTATE AMINOTRANSFERASE 57 IU/L (10-42); BUN - BLOOD UREA NITROGEN 16 mg/dL (6-20); CALCIUM 9.7 mg/dL (8.5-10.3); CARBON DIOXIDE - CO2 21 mmol/L (21-32); CHLORIDE 103 mmol/L (101-111); CHOL/HDL RATIO 6.5 (<4.4); CHOLESTEROL 261 mg/dL; GLUCOSE 158 mg/dL (70-100); HDL CHOLESTEROL 40 mg/dL; LDL CHOLESTEROL,CALCULATED 171 mg/dL; LDL/HDL RATIO 4.3 (<4.4); SODIUM 138 mmol/L (135-145); TOTAL PROTEIN 7.6 g/dL (6.7-8.2); VLDL CHOLESTEROL 50 mg/dL
[2020-04-25 20:06] LABS: HEMOGLOBIN A1c% 7.1 % (4.27-6.07)
== END 2020-04-25 23:59 | disposition home or self-care (01) ==
LOC: LAB.WCP 08:00
PROVIDERS: ATTEND Family Medicine
DX: E11.9 Type 2 diabetes mellitus without complications (principal)
CPT/HCPCS: 36415; 80053; 80061; 82043; 82570; 83036; 83721; 84443; 85025

== ENCOUNTER 2020-04-29 08:00 | Outpatient (CLI) | payer MEDICAID ==
[2020-04-29 12:45] LABS: CREATININE,URINE 152.2 mg/dL
[2020-04-29 13:00] LABS: MICROALBUMIN,URINE < 0.2 mg/dL (0-300.0)
== END 2020-04-29 23:59 | disposition home or self-care (01) ==
LOC: LAB.R 08:00
PROVIDERS: ATTEND Family Medicine
DX: E11.9 Type 2 diabetes mellitus without complications (principal)
CPT/HCPCS: 82043; 82570

== ENCOUNTER 2020-07-31 08:00 | Outpatient (CLI) | payer MEDICAID ==
[2020-07-31 13:49] LABS: ALBUMIN 3.6 g/dL (3.2-5.5); ALBUMIN/GLOBULIN RATIO 1.4 (1.0-2.2); ALKALINE PHOSPHATASE 106 IU/L (42-121); ALT ALANINE AMINOTRANSFERASE 41 IU/L (10-60); AST ASPARTATE AMINOTRANSFERASE 47 IU/L (10-42); BILIRUBIN,TOTAL 0.6 mg/dL (0.2-1.0); BUN - BLOOD UREA NITROGEN 12 mg/dL (6-20); CALCIUM 9.6 mg/dL (8.5-10.3); CARBON DIOXIDE - CO2 22 mmol/L (21-32); CHLORIDE 105 mmol/L (101-111); CHOL/HDL RATIO 5.1 (<4.4); CHOLESTEROL 148 mg/dL; GLUCOSE 118 mg/dL (70-100); HDL CHOLESTEROL 29 mg/dL; LDL CHOLESTEROL,CALCULATED 85 mg/dL; LDL/HDL RATIO 2.9 (<4.4); TOTAL PROTEIN 6.1 g/dL (6.7-8.2); VLDL CHOLESTEROL 34 mg/dL
== END 2020-07-31 23:59 | disposition home or self-care (01) ==
LOC: LAB.WCP 08:00
PROVIDERS: ATTEND Family Medicine
DX: R94.5 Abnormal results of liver function studies (principal); E78.5 Hyperlipidemia, unspecified
CPT/HCPCS: 36415; 80053; 80061; 83721

== ENCOUNTER 2020-08-06 11:47 | Outpatient (CLI) | payer MEDICAID ==
[2020-08-06 20:23] LABS: HEMOGLOBIN A1c% 7.1 % (4.27-6.07)
== END 2020-08-06 23:59 | disposition home or self-care (01) ==
LOC: LAB.WCP 11:47
PROVIDERS: ATTEND Family Medicine
DX: E11.9 Type 2 diabetes mellitus without complications (principal)
CPT/HCPCS: 36415; 80048; 82043; 82570; 83036

== ENCOUNTER 2020-08-07 08:00 | Outpatient (CLI) | payer MEDICAID ==
[2020-08-07 15:47] LABS: CREATININE,URINE 226.9 mg/dL
[2020-08-07 15:48] LABS: MICROALBUMIN,URINE < 0.2 mg/dL (0-300.0)
== END 2020-08-07 23:59 | disposition home or self-care (01) ==
LOC: LAB.R 08:00
PROVIDERS: ATTEND Family Medicine
DX: E11.9 Type 2 diabetes mellitus without complications (principal)
CPT/HCPCS: 82043; 82570

== ENCOUNTER 2020-08-14 08:03 | Outpatient (CLI) | payer MEDICAID ==
--- NOTE | 2020-08-14 09:39 | Ultrasound Report ---
PROCEDURE: Abdomen Limited INDICATIONS: ABD WALL ANOMALY TECHNIQUE: Real-time focused scanning was performed of the abdomen, with image documentation. COMPARISON: No similar studies available. FINDINGS: In the 3 areas of patient's concern, there is no abdominal wall abnormality. No evidence o f hernia at rest or during Valsalva maneuver. IMPRESSION: No evidence of abdominal wall hernias in the areas of abnormality. Reviewed by: Janeth Liu MD on 08/14/2020 8:37 AM [facility] Approved by: Janeth Liu MD on 08/14/2020 8:37 AM [facility] Station ID: [id number]
== END 2020-08-14 08:04 | disposition home or self-care (01) ==
LOC: DI 08:03
PROVIDERS: ATTEND Nurse Practitioner
DX: Q79.59 Other congenital malformations of abdominal wall (principal)

== ENCOUNTER 2020-08-22 16:20 | Outpatient (CLI) | payer MEDICAID ==
--- NOTE | 2020-08-22 16:54 | SLEEP CARE CONSULTATION ---
Information from patient questionnaire entered by David Anthony. I have reviewed and concur with the information entered by David Anthony. This document represents the service I personally performed and the decisions made by , Marizol Blank ARNP. History of Present Illness Service Date and Time: 08/22/2020 1620 Previous diagnosis: Extremely Severe, Obstructive Sleep Apnea-Hypopnea Syndrome AHI: 147 Equipment type: CPAP Equipment obtained from: [employer] (getting supplies as needed) Mask style: Nasal (Dreamwear) Backup mask available: Yes (old mask) Last cushion change: 1-2 weeks Prior sleep studies: Yes Year and Where: [address] [facility] [address] [facility] titration HPI additional information: TYREL WRIGHT was diagnosed to have very extremely severe, AHI 147, obstructive sleep apnea-hypopnea syndrome and returned today for CPAP therapy annual follow-up. CPAP Compliance Data - Data Reviewed with Patient Average duration of nightly device use: 11 h 4 min Compliance rate %: 99 Current pressure setting (cmH2O): 14 Average residual AHI: 4.1 Central apnea: 2.0 Obstructive apnea: 1.5 Subjective Patient concerns: reports: dry mouth, nose, throat (due to medication; she usually drinks juice in the night; she does not use the humidity). denies: aerophagia, mask discomfort, air blowing in eyes, mask leak noise, condensation in mask/hose, nasal congestion, epistaxis, other Observed to snore while using device: No Current pressure setting perceived as: comfortable On therapy, patient: reports: sleeping better, awakening more refreshed, being more awake and alert during the day, more rested overall. denies: drowsiness while driving Initial [place] Sleepiness Scale score: 8 (in 2016) Current [place] Sleepiness Scale score: 5 Allergies and Home Medications Home medication list reviewed: Yes (cholesterol med and Citalopram) Review of Systems Review of systems same as previous: Yes (no changes) Physical Exam Heart Rate: 98 O2 Saturation: 98 Height: 5 ft 5 in Weight: 287 lb Weight change since last visit: 49 Body Mass Index: 47.7 BMI Classification: Morbidly Obese Impression and Plan 1. Obstructive Sleep Apnea-Hypopnea Syndrome, extremely severe, with excellent treatment compliance and good apnea control. On CPAP therapy, the patient has better sleep quality and is more rested overall. She has some issues with dry mouth and has to drink some fluids during the night. I asked about using the humidity on the machine and she states she does not like to use it. Patient has lost weight. Currently patients BMI is 47.7. Obesity increases the risk of apnea, CPAP pressure requirements and overall health risks especially cardiovascular and diabetes. Thus patient is advised to continue to lose weight. She was advised to contact us with any issues with her pressure as she continues to lose weight. Patient voiced understanding. Patient's apnea severity and rationale for treatment to reduce apnea, improve sleep quality and reduce cardiovascular and cerebrovascular events was reviewed. I also reviewed the benefit of consistent device use of CPAP for hypertension, diabetes, and depression. * Continue CPAP pressure at 14 cmH2O * Notify me if snoring with mask or feeling that the pressure is too much or too little * Continue to lose weight * Call this office if any problems using CPAP * Return for follow up in 1 year, or sooner if concerns arise Counseling Topics: Spare mask, Weight loss health impact Visit Type: In Office Time Spent with Patient (minutes): 16 Provider Statement: I spent 100% of the Face to Face Visit with the patient with greater than 50% spent counseling the patient and coordination of care.
== END 2020-08-22 16:21 | disposition home or self-care (01) ==
LOC: SC 16:20
PROVIDERS: ATTEND Nurse Practitioner Family
DX: G47.33 Obstructive sleep apnea (adult) (pediatric) (principal); E66.01 Morbid (severe) obesity due to excess calories; Z68.42 Body mass index [BMI] 45.0-49.9, adult
CPT/HCPCS: 99212

== ENCOUNTER 2020-11-04 08:00 | Outpatient (CLI) | payer MEDICAID ==
[2020-11-04 18:28] LABS: BASOPHILS # (AUTO) 0.1 10^3/uL (0.0-0.1); BASOPHILS % (AUTO) 1.2 %; EOSINOPHILS # (AUTO) 0.5 10^3/uL (0.0-0.7); EOSINOPHILS % (AUTO) 10.9 %; HCT - HEMATOCRIT 44.4 % (37.0-47.0); HGB - HEMOGLOBIN 14.2 g/dL (12.0-16.0); LYMPHOCYTES # (AUTO) 0.9 10^3/uL (1.5-3.5); LYMPHOCYTES % (AUTO) 20.5 %; MEAN CORPUSCULAR HEMOGLOBIN 30.2 pg (27.0-31.0); MEAN CORPUSCULAR VOLUME 94.5 fL (81.0-99.0); MONOCYTES # (AUTO) 0.5 10^3/uL (0.0-1.0); MONOCYTES % (AUTO) 11.4 %; NEUTROPHILS # (AUTO) 2.4 10^3/uL (1.5-6.6); NEUTROPHILS % (AUTO) 55.8 %; RED CELL DISTRIBUTION WIDTH 14.5 % (12.0-15.0); WHITE BLOOD COUNT 4.3 x10^3/uL (4.8-10.8)
[2020-11-04 18:31] LABS: SLIDE REVIEW? Indicated
[2020-11-04 19:03] LABS: ALBUMIN 3.7 g/dL (3.2-5.5); ALBUMIN/GLOBULIN RATIO 1.3 (1.0-2.2); ALKALINE PHOSPHATASE 99 IU/L (42-121); ALT ALANINE AMINOTRANSFERASE 24 IU/L (10-60); AST ASPARTATE AMINOTRANSFERASE 25 IU/L (10-42); BILIRUBIN,TOTAL 0.6 mg/dL (0.2-1.0); BUN - BLOOD UREA NITROGEN 17 mg/dL (6-20); CALCIUM 9.1 mg/dL (8.5-10.3); CARBON DIOXIDE - CO2 22 mmol/L (21-32); CHLORIDE 106 mmol/L (101-111); CHOL/HDL RATIO 5.7 (<4.4); CHOLESTEROL 200 mg/dL; CREATININE 0.9 mg/dL (0.4-1.0); GFR - MDRD 67 (>89); GLUCOSE 118 mg/dL (70-100); HDL CHOLESTEROL 35 mg/dL; LDL CHOLESTEROL,CALCULATED 130 mg/dL; LDL/HDL RATIO 3.7 (<4.4); SODIUM 140 mmol/L (135-145); TOTAL PROTEIN 6.6 g/dL (6.7-8.2); TRIGLYCERIDES 175 mg/dL; VLDL CHOLESTEROL 35 mg/dL
[2020-11-04 19:15] LABS: PLATELET ESTIMATE, MANUAL NORMAL (130-450,000) (NORMAL); PLATELET MORPHOLOGY PLATELET CLUMPING (NORMAL); RBC MORPHOLOGY (MULTIPLE) NORMAL APPEARANCE (NORMAL); THYROID STIMULATING HORMONE 1.67 uIU/mL (0.34-5.60); WBC MORPHOLOGY (MULTIPLE) NORMAL APPEARANCE (NORMAL)
[2020-11-04 19:40] LABS: FOLLICLE STIMULATING HORMONE 58.07 mIU/mL; LUTEINIZING HORMONE 29.07 mIU/mL
[2020-11-04 19:55] LABS: ESTIMATED AVERAGE GLUCOSE 140 mg/dL (70-100); HEMOGLOBIN A1c% 6.5 % (4.27-6.07)
== END 2020-11-04 23:59 | disposition home or self-care (01) ==
LOC: LAB.WCP 08:00
PROVIDERS: ATTEND Internal Medicine
DX: N95.9 Unspecified menopausal and perimenopausal disorder (principal); I10 Essential (primary) hypertension; E11.42 Type 2 diabetes mellitus with diabetic polyneuropathy
CPT/HCPCS: 36415; 80053; 80061; 82670; 83001; 83002; 83036; 83721; 84443; 85025

== ENCOUNTER 2020-11-19 10:14 | Outpatient (CLI) | payer MEDICAID ==
[2020-11-19] MEDS ORDERED: ALBUTEROL 1 PUFF INH STA (12:02)
== END 2020-11-19 10:15 | disposition home or self-care (01) ==
LOC: RT 10:14
PROVIDERS: ATTEND Internal Medicine
DX: R06.2 Wheezing (principal)
CPT/HCPCS: 94060; 94729

== ENCOUNTER 2021-01-28 10:46 | Outpatient (CLI) | payer MEDICAID ==
[2021-01-28 19:14] LABS: ALT ALANINE AMINOTRANSFERASE 23 IU/L (10-60); BUN - BLOOD UREA NITROGEN 18 mg/dL (6-20); CALCIUM 8.9 mg/dL (8.5-10.3); CARBON DIOXIDE - CO2 24 mmol/L (21-32); CHLORIDE 103 mmol/L (101-111); CHOL/HDL RATIO 4.3 (<4.4); CHOLESTEROL 164 mg/dL; CREATININE 0.9 mg/dL (0.4-1.0); GFR - MDRD 67 (>89); GLUCOSE 136 mg/dL (70-100); HDL CHOLESTEROL 38 mg/dL; LDL CHOLESTEROL,CALCULATED 93 mg/dL; LDL/HDL RATIO 2.4 (<4.4); POTASSIUM 4.3 mmol/L (3.5-5.0); SODIUM 138 mmol/L (135-145); TRIGLYCERIDES 166 mg/dL; VLDL CHOLESTEROL 33 mg/dL
[2021-01-28 20:45] LABS: ESTIMATED AVERAGE GLUCOSE 134 mg/dL (70-100); HEMOGLOBIN A1c% 6.3 % (4.27-6.07)
== END 2021-01-28 23:59 | disposition home or self-care (01) ==
LOC: LAB.WCP 10:46
PROVIDERS: ATTEND Internal Medicine
DX: E11.42 Type 2 diabetes mellitus with diabetic polyneuropathy (principal)
CPT/HCPCS: 36415; 80048; 80061; 82043; 82570; 83036; 83721; 84460

== ENCOUNTER 2021-01-30 09:05 | Outpatient (CLI) | payer MEDICAID ==
[2021-01-30 18:59] LABS: MICROALBUMIN,URINE < 0.2 mg/dL (0-300.0)
== END 2021-01-30 23:59 | disposition home or self-care (01) ==
LOC: LAB.WCP 09:05
PROVIDERS: ATTEND Internal Medicine
DX: E11.42 Type 2 diabetes mellitus with diabetic polyneuropathy (principal)
CPT/HCPCS: 82043; 82570; 87086

== ENCOUNTER 2021-04-14 06:47 | Outpatient (CLI) | payer MEDICAID ==
--- NOTE | 2021-04-14 08:31 | Ultrasound Report ---
PROCEDURE: Abdomen Complete INDICATIONS: EPIGASTRIC ABD PAIN TECHNIQUE: Real-time scanning was performed of the abdominal and retroperitoneal organs, with image documentatio n. COMPARISON: No similar studies. Correlation is made to CT abdomen pelvis 10/12/2016 FINDINGS: Liver: Liver is at the upper limits of normal in size measuring 18.7 cm in length. The parenchyma is moderately diffusely hyperechoic. No discrete mass. Gallbladder: Gallbladder is normal without stones or sludge. Normal wall thickness at 1.9 mm. No juliana cholecystic fluid or sonographic Bazan sign. Biliary ducts: Intrahepatic bile ducts are non-dilated. Extrahepatic bile duct caliber measures 6.6 mm. Normal is 6-7 mm or less in diameter, or 10 mm or less post-cholecystectomy. Pancreas: Visualized portions of the pancreas are sonographically normal. Spleen: Spleen is normal in size and homogeneous in echotexture. Kidneys: Kidneys are normal in size and echotexture. Right kidney measures 12.7 cm long; left kidne y measures 13.4 cm long. No hydronephrosis or nephrolithiasis. No solid masses. Aorta: Visualized aorta is normal in caliber at less than 3 cm. Iliacs: Not seen due to lack of good acoustic window. IVC: Intrahepatic inferior vena cava is patent. Miscellaneous: No free abdominal fluid. IMPRESSION: 1. Normal gallbladder. 2. Borderline hepatomegaly and moderate hepatic steatosis. Reviewed by: Janeth Liu MD on 04/14/2021 8:30 AM PDT Approved by: Janeth Liu MD on 04/14/2021 8:30 AM PDT Station ID: [id number]
== END 2021-04-14 06:48 | disposition home or self-care (01) ==
LOC: DI 06:47
PROVIDERS: ATTEND Internal Medicine
DX: R10.13 Epigastric pain (principal)

== ENCOUNTER 2021-04-29 08:00 | Outpatient (CLI) | payer MEDICAID ==
[2021-04-29 12:03] LABS: BASOPHILS # (AUTO) 0.1 10^3/uL (0.0-0.1); BASOPHILS % (AUTO) 0.9 %; EOSINOPHILS # (AUTO) 0.3 10^3/uL (0.0-0.7); EOSINOPHILS % (AUTO) 5.8 %; HCT - HEMATOCRIT 43.8 % (37.0-47.0); HGB - HEMOGLOBIN 14.2 g/dL (12.0-16.0); LYMPHOCYTES # (AUTO) 0.8 10^3/uL (1.5-3.5); LYMPHOCYTES % (AUTO) 14.2 %; MEAN CORPUSCULAR HEMOGLOBIN 30.7 pg (27.0-31.0); MEAN CORPUSCULAR HGB CONC 32.4 g/dL (32.0-36.0); MEAN CORPUSCULAR VOLUME 94.8 fL (81.0-99.0); MEAN PLATELET VOLUME 10.2 fL (7.9-10.8); MONOCYTES # (AUTO) 0.6 10^3/uL (0.0-1.0); MONOCYTES % (AUTO) 11.4 %; NEUTROPHILS # (AUTO) 3.6 10^3/uL (1.5-6.6); NEUTROPHILS % (AUTO) 67.3 %; PLT - PLATELET COUNT 250 10^3/uL (130-450); RED BLOOD COUNT 4.62 10^6/uL (4.20-5.40); RED CELL DISTRIBUTION WIDTH 13.2 % (12.0-15.0); WHITE BLOOD COUNT 5.3 x10^3/uL (4.8-10.8)
[2021-04-29 12:34] LABS: ALBUMIN 3.6 g/dL (3.2-5.5); ALBUMIN/GLOBULIN RATIO 1.2 (1.0-2.2); BILIRUBIN,TOTAL 1.1 mg/dL (0.2-1.0); CALCIUM 9.2 mg/dL (8.5-10.3); CREATININE 0.9 mg/dL (0.4-1.0); POTASSIUM 4.3 mmol/L (3.5-5.0); TOTAL PROTEIN 6.6 g/dL (6.7-8.2)
[2021-04-29 13:53] LABS: ESTIMATED AVERAGE GLUCOSE 166 mg/dL (70-100); HEMOGLOBIN A1c% 7.4 % (4.27-6.07)
== END 2021-04-29 23:59 | disposition home or self-care (01) ==
LOC: LAB.WCP 08:00
PROVIDERS: ATTEND Internal Medicine
DX: R10.13 Epigastric pain (principal); E11.42 Type 2 diabetes mellitus with diabetic polyneuropathy
CPT/HCPCS: 36415; 80053; 82043; 82570; 83036; 83690; 85025

== ENCOUNTER 2021-05-01 08:00 | Outpatient (CLI) | payer MEDICAID ==
[2021-05-01 18:30] LABS: CREATININE,URINE 167.6 mg/dL
[2021-05-01 18:34] LABS: MICROALBUMIN,URINE < 0.2 mg/dL (0-300.0)
== END 2021-05-01 23:59 | disposition home or self-care (01) ==
LOC: LAB.WCP 08:00
PROVIDERS: ATTEND Internal Medicine
DX: E11.40 Type 2 diabetes mellitus with diabetic neuropathy, unspecified (principal)
CPT/HCPCS: 82043; 82570

== ENCOUNTER 2021-07-22 08:00 | Outpatient (CLI) | payer MEDICAID ==
[2021-07-22 12:55] LABS: LITHIUM 0.32 mmol/L
[2021-07-22 13:03] LABS: THYROID STIMULATING HORMONE 3.39 uIU/mL (0.34-5.60)
[2021-07-22 13:07] LABS: ALBUMIN 3.7 g/dL (3.2-5.5); ALBUMIN/GLOBULIN RATIO 1.2 (1.0-2.2); ALKALINE PHOSPHATASE 103 IU/L (42-121); ALT ALANINE AMINOTRANSFERASE 27 IU/L (10-60); AST ASPARTATE AMINOTRANSFERASE 21 IU/L (10-42); BILIRUBIN,TOTAL 1.1 mg/dL (0.2-1.0); BUN - BLOOD UREA NITROGEN 17 mg/dL (6-20); CALCIUM 9.4 mg/dL (8.5-10.3); CARBON DIOXIDE - CO2 23 mmol/L (21-32); CHLORIDE 101 mmol/L (101-111); CHOL/HDL RATIO 3.9 (<4.4); CHOLESTEROL 138 mg/dL; CREATININE 0.8 mg/dL (0.4-1.0); GFR - MDRD 76 (>89); GLUCOSE 173 mg/dL (70-100); HDL CHOLESTEROL 35 mg/dL; LDL CHOLESTEROL,CALCULATED 74 mg/dL; LDL/HDL RATIO 2.1 (<4.4); POTASSIUM 3.8 mmol/L (3.5-5.0); SODIUM 137 mmol/L (135-145); TOTAL PROTEIN 6.7 g/dL (6.7-8.2); TRIGLYCERIDES 143 mg/dL; VLDL CHOLESTEROL 29 mg/dL
[2021-07-22 19:41] LABS: CREATININE,URINE 305.4 mg/dL; MICROALBUM/CREATININE RATIO,UR 3.3 ug/mg (<30.0)
[2021-07-22 19:52] LABS: ESTIMATED AVERAGE GLUCOSE 163 mg/dL (70-100); HEMOGLOBIN A1c% 7.3 % (4.27-6.07)
== END 2021-07-22 23:59 | disposition home or self-care (01) ==
LOC: LAB.WCP 08:00
PROVIDERS: ATTEND Internal Medicine
DX: F31.9 Bipolar disorder, unspecified (principal); E11.42 Type 2 diabetes mellitus with diabetic polyneuropathy
CPT/HCPCS: 36415; 80053; 80061; 80178; 82043; 82570; 83036; 83721; 84443

== ENCOUNTER 2021-11-10 10:32 | Outpatient (CLI) | payer MEDICAID ==
[2021-11-10 18:26] LABS: CALCIUM 9.3 mg/dL (8.5-10.3); CREATININE 0.9 mg/dL (0.4-1.0); POTASSIUM 4.3 mmol/L (3.5-5.0)
[2021-11-10 18:31] LABS: LITHIUM 0.28 mmol/L
[2021-11-10 20:09] LABS: ESTIMATED AVERAGE GLUCOSE 160 mg/dL (70-100); HEMOGLOBIN A1c% 7.2 % (4.27-6.07)
== END 2021-11-10 10:33 | disposition home or self-care (01) ==
LOC: LAB.N 10:32
PROVIDERS: ATTEND Internal Medicine
DX: E11.42 Type 2 diabetes mellitus with diabetic polyneuropathy (principal); F31.9 Bipolar disorder, unspecified
CPT/HCPCS: 36415; 80048; 80178; 83036

== ENCOUNTER 2022-03-03 09:23 | Outpatient (CLI) | payer MEDICAID ==
[2022-03-03 12:21] LABS: BASOPHILS # (AUTO) 0.1 10^3/uL (0.0-0.1); BASOPHILS % (AUTO) 0.9 %; EOSINOPHILS # (AUTO) 0.3 10^3/uL (0.0-0.7); EOSINOPHILS % (AUTO) 5.4 %; HCT - HEMATOCRIT 42.2 % (37.0-47.0); LYMPHOCYTES # (AUTO) 0.8 10^3/uL (1.5-3.5); LYMPHOCYTES % (AUTO) 14.4 %; MEAN CORPUSCULAR HEMOGLOBIN 31.3 pg (27.0-31.0); MEAN CORPUSCULAR HGB CONC 33.2 g/dL (32.0-36.0); MEAN CORPUSCULAR VOLUME 94.4 fL (81.0-99.0); MEAN PLATELET VOLUME 10.8 fL (7.9-10.8); MONOCYTES # (AUTO) 0.4 10^3/uL (0.0-1.0); MONOCYTES % (AUTO) 7.7 %; NEUTROPHILS % (AUTO) 71.4 %; PLT - PLATELET COUNT 233 10^3/uL (130-450); RED BLOOD COUNT 4.47 10^6/uL (4.20-5.40); RED CELL DISTRIBUTION WIDTH 13.6 % (12.0-15.0); WHITE BLOOD COUNT 5.6 x10^3/uL (4.8-10.8)
[2022-03-03 12:48] LABS: THYROID STIMULATING HORMONE 3.62 uIU/mL (0.34-5.60)
[2022-03-03 13:08] LABS: LITHIUM 0.78 mmol/L
[2022-03-03 13:32] LABS: ALBUMIN 3.9 g/dL (3.2-5.5); ALBUMIN/GLOBULIN RATIO 1.4 (1.0-2.2); ALKALINE PHOSPHATASE 76 IU/L (42-121); ALT ALANINE AMINOTRANSFERASE 34 IU/L (10-60); AST ASPARTATE AMINOTRANSFERASE 27 IU/L (10-42); BUN - BLOOD UREA NITROGEN 15 mg/dL (6-20); CALCIUM 9.4 mg/dL (8.5-10.3); CARBON DIOXIDE - CO2 23 mmol/L (21-32); CHLORIDE 105 mmol/L (101-111); CHOL/HDL RATIO 3.7 (<4.4); CHOLESTEROL 128 mg/dL; CREATININE 0.8 mg/dL (0.4-1.0); GFR - MDRD 76 (>89); GLUCOSE 172 mg/dL (70-100); HDL CHOLESTEROL 35 mg/dL; LDL CHOLESTEROL,CALCULATED 56 mg/dL; LDL/HDL RATIO 1.6 (<4.4); POTASSIUM 4.1 mmol/L (3.5-5.0); SODIUM 138 mmol/L (135-145); TOTAL PROTEIN 6.6 g/dL (6.7-8.2); TRIGLYCERIDES 187 mg/dL; VLDL CHOLESTEROL 37 mg/dL
[2022-03-03 19:50] LABS: ESTIMATED AVERAGE GLUCOSE 166 mg/dL (70-100); HEMOGLOBIN A1c% 7.4 % (4.27-6.07)
== END 2022-03-03 09:24 | disposition home or self-care (01) ==
LOC: LAB.N 09:23
PROVIDERS: ATTEND Internal Medicine
DX: E11.42 Type 2 diabetes mellitus with diabetic polyneuropathy (principal); E78.5 Hyperlipidemia, unspecified; F31.9 Bipolar disorder, unspecified; I10 Essential (primary) hypertension
CPT/HCPCS: 36415; 80053; 80061; 80178; 82043; 82570; 83036; 83721; 84443; 85025

== ENCOUNTER 2022-03-04 08:00 | Outpatient (CLI) | payer MEDICAID ==
[2022-03-04 18:15] LABS: CREATININE,URINE 104.7 mg/dL
[2022-03-04 19:12] LABS: MICROALBUMIN,URINE < 0.2 mg/dL (0-300.0)
== END 2022-03-04 23:59 | disposition home or self-care (01) ==
LOC: LAB.N 08:00
PROVIDERS: ATTEND Internal Medicine
DX: E11.42 Type 2 diabetes mellitus with diabetic polyneuropathy (principal)
CPT/HCPCS: 82043; 82570

== ENCOUNTER 2022-04-08 14:49 | Outpatient (CLI) | payer MEDICAID ==
--- NOTE | 2022-04-09 09:49 | Mammography Report ---
BILATERAL DIGITAL SCREENING MAMMOGRAM 3D/2D: 04/08/2022 CLINICAL: Routine screening. Comparison is made to exam dated: 11/09/2017 mammogram - [facility]. There are scattered areas of fibroglandular density in both breasts (category b / 25%-50% glandular t issue). No significant masses, calcifications, or other findings are seen in either breast. There has been no significant interval change. IMPRESSION: NEGATIVE There is no mammographic evidence of malignancy. A 1 year screening mammogram is recommended. Based on the Tyrer Cuzick model (a risk assessment model) the patients lifetime risk is 6.9% and her 10 year risk is 1.6%. According to the ACR, ACS, and NCCN guidelines, an annual breast MRI exam pipo g with mammogram is recommended if the patients lifetime risk is 20% or greater. This exam was interpreted at Station ID: [id number]. NOTE: For mammograms, a report in lay terms will be sent to the patient. Approximately 15% of breast malignancies will not be visualized mammographically. In the management of a palpable breast mass, a negative mammogram must not discourage biopsy of a clinically suspicious lesion. Electronically Signed By: Reginaldo Roe M.D. aty/penrad:04/09/2022 08:03:24 ACR BI-RADS Category 1: Negative 3341F PARENCHYMAL PATTERN: (A) - The breast(s) demonstrate(s) scattered fibroglandular densities. BI-RADS CATEGORY: (1) - 1 RECOMMENDATION: (ANNUAL) - Recommend routine annual screening mammography. [id number] 1 year screening LATERALITY: (B)
== END 2022-04-08 14:50 | disposition home or self-care (01) ==
LOC: DI.N 14:49
PROVIDERS: ATTEND Internal Medicine
DX: Z12.31 Encounter for screening mammogram for malignant neoplasm of breast (principal)

== ENCOUNTER 2022-07-14 09:38 | Outpatient (CLI) | payer MEDICAID ==
[2022-07-14 12:38] LABS: BASOPHILS # (AUTO) 0.1 10^3/uL (0.0-0.1); EOSINOPHILS # (AUTO) 0.2 10^3/uL (0.0-0.7); EOSINOPHILS % (AUTO) 4.2 %; HCT - HEMATOCRIT 43.1 % (37.0-47.0); HGB - HEMOGLOBIN 13.4 g/dL (12.0-16.0); LYMPHOCYTES % (AUTO) 17.2 %; MEAN CORPUSCULAR HEMOGLOBIN 30.1 pg (27.0-31.0); MEAN CORPUSCULAR HGB CONC 31.1 g/dL (32.0-36.0); MEAN CORPUSCULAR VOLUME 96.9 fL (81.0-99.0); MEAN PLATELET VOLUME 10.2 fL (7.9-10.8); MONOCYTES # (AUTO) 0.5 10^3/uL (0.0-1.0); MONOCYTES % (AUTO) 8.1 %; NEUTROPHILS % (AUTO) 69.3 %; PLT - PLATELET COUNT 263 10^3/uL (130-450); RED BLOOD COUNT 4.45 10^6/uL (4.20-5.40); RED CELL DISTRIBUTION WIDTH 13.3 % (12.0-15.0); WHITE BLOOD COUNT 5.8 x10^3/uL (4.8-10.8)
[2022-07-14 13:04] LABS: ESTIMATED AVERAGE GLUCOSE 180 mg/dL (70-100); HEMOGLOBIN A1c% 7.9 % (4.27-6.07)
[2022-07-14 13:07] LABS: ALBUMIN 3.6 g/dL (3.2-5.5); ALBUMIN/GLOBULIN RATIO 1.2 (1.0-2.2); ALKALINE PHOSPHATASE 99 IU/L (42-121); ALT ALANINE AMINOTRANSFERASE 39 IU/L (10-60); AST ASPARTATE AMINOTRANSFERASE 31 IU/L (10-42); BILIRUBIN,TOTAL 0.7 mg/dL (0.2-1.0); BUN - BLOOD UREA NITROGEN 12 mg/dL (6-20); CALCIUM 9.3 mg/dL (8.5-10.3); CARBON DIOXIDE - CO2 28 mmol/L (21-32); CHLORIDE 105 mmol/L (101-111); CHOL/HDL RATIO 4.5 (<4.4); CHOLESTEROL 145 mg/dL; CREATININE 0.7 mg/dL (0.4-1.0); GFR - MDRD 89 (>89); GLUCOSE 210 mg/dL (70-100); HDL CHOLESTEROL 32 mg/dL; LDL CHOLESTEROL,CALCULATED 76 mg/dL; LDL/HDL RATIO 2.4 (<4.4); POTASSIUM 4.1 mmol/L (3.5-5.0); SODIUM 141 mmol/L (135-145); TOTAL PROTEIN 6.7 g/dL (6.7-8.2); TRIGLYCERIDES 184 mg/dL; VLDL CHOLESTEROL 37 mg/dL
[2022-07-14 13:13] LABS: THYROID STIMULATING HORMONE 3.03 uIU/mL (0.34-5.60)
== END 2022-07-14 09:39 | disposition home or self-care (01) ==
LOC: LAB.N 09:38
PROVIDERS: ATTEND Internal Medicine
DX: I10 Essential (primary) hypertension (principal); E78.5 Hyperlipidemia, unspecified; F31.9 Bipolar disorder, unspecified; E11.42 Type 2 diabetes mellitus with diabetic polyneuropathy
CPT/HCPCS: 36415; 80053; 80061; 83036; 83721; 84443; 85025

== ENCOUNTER 2022-12-15 09:15 | Outpatient (CLI) | payer MEDICAID ==
[2022-12-15 11:56] LABS: BASOPHILS # (AUTO) 0.1 10^3/uL (0.0-0.1); EOSINOPHILS # (AUTO) 0.3 10^3/uL (0.0-0.7); EOSINOPHILS % (AUTO) 4.7 %; HCT - HEMATOCRIT 42.1 % (37.0-47.0); HGB - HEMOGLOBIN 13.6 g/dL (12.0-16.0); LYMPHOCYTES # (AUTO) 1.1 10^3/uL (1.5-3.5); LYMPHOCYTES % (AUTO) 18.3 %; MEAN CORPUSCULAR HEMOGLOBIN 30.8 pg (27.0-31.0); MEAN CORPUSCULAR HGB CONC 32.3 g/dL (32.0-36.0); MEAN CORPUSCULAR VOLUME 95.2 fL (81.0-99.0); MEAN PLATELET VOLUME 10.1 fL (7.9-10.8); MONOCYTES # (AUTO) 0.5 10^3/uL (0.0-1.0); MONOCYTES % (AUTO) 7.5 %; NEUTROPHILS # (AUTO) 4.1 10^3/uL (1.5-6.6); NEUTROPHILS % (AUTO) 68.2 %; PLT - PLATELET COUNT 255 10^3/uL (130-450); RED BLOOD COUNT 4.42 10^6/uL (4.20-5.40); RED CELL DISTRIBUTION WIDTH 13.6 % (12.0-15.0)
[2022-12-15 12:20] LABS: THYROID STIMULATING HORMONE 1.57 uIU/mL (0.34-5.60)
[2022-12-15 12:29] LABS: ESTIMATED AVERAGE GLUCOSE 157 mg/dL (70-100); HEMOGLOBIN A1c% 7.1 % (4.27-6.07)
[2022-12-15 21:39] LABS: ALBUMIN 3.6 g/dL (3.2-5.5); ALBUMIN/GLOBULIN RATIO 1.2 (1.0-2.2); ALKALINE PHOSPHATASE 90 IU/L (42-121); ALT ALANINE AMINOTRANSFERASE 28 IU/L (10-60); AST ASPARTATE AMINOTRANSFERASE 19 IU/L (10-42); BILIRUBIN,TOTAL 0.7 mg/dL (0.2-1.0); BUN - BLOOD UREA NITROGEN 14 mg/dL (6-20); CARBON DIOXIDE - CO2 27 mmol/L (21-32); CHLORIDE 108 mmol/L (101-111); CHOL/HDL RATIO 4.1 (<4.4); CHOLESTEROL 146 mg/dL; CREATININE 0.8 mg/dL (0.4-1.0); GFR - MDRD 76 (>89); GLUCOSE 135 mg/dL (70-100); HDL CHOLESTEROL 36 mg/dL; LDL CHOLESTEROL,CALCULATED 64 mg/dL; LDL/HDL RATIO 1.8 (<4.4); POTASSIUM 4.3 mmol/L (3.5-5.0); SODIUM 142 mmol/L (135-145); TOTAL PROTEIN 6.7 g/dL (6.7-8.2); TRIGLYCERIDES 232 mg/dL; VLDL CHOLESTEROL 46 mg/dL
[2022-12-16 19:33] LABS: CREATININE,URINE 151.3 mg/dL; MICROALBUM/CREATININE RATIO,UR 2.6 ug/mg (<30.0); MICROALBUMIN,URINE 0.4 mg/dL (0-300.0)
== END 2022-12-15 09:16 | disposition home or self-care (01) ==
LOC: LAB.N 09:15
PROVIDERS: ATTEND Internal Medicine
DX: E78.5 Hyperlipidemia, unspecified (principal); F31.9 Bipolar disorder, unspecified; N18.31 Chronic kidney disease, stage 3a; E11.42 Type 2 diabetes mellitus with diabetic polyneuropathy
CPT/HCPCS: 36415; 80053; 80061; 82043; 82570; 83036; 83721; 84443; 85025

== ENCOUNTER 2023-02-17 15:28 | Outpatient (CLI) | payer MEDICAID ==
--- NOTE | 2023-02-17 17:26 | XRAY Report ---
PROCEDURE: Finger(s) RT INDICATIONS: THUMB PAIN RIGHT TECHNIQUE: AP hand, 2 views of the first finger(s) acquired. COMPARISON: None. FINDINGS: Bones: No fractures or dislocations. No suspicious bony lesions. Mild first CMC joint space narro wing with osteophytosis. Soft tissues: No suspicious soft tissue calcifications or masses. IMPRESSION: No acute bony abnormality. Mild first CMC osteoarthritis. Reviewed by: Keshav Ventura on 02/17/2023 5:25 PM PDT Approved by: Keshav Ventura on 02/17/2023 5:25 PM PDT Station ID: [id number]
== END 2023-02-17 15:29 | disposition home or self-care (01) ==
LOC: DI 15:28
PROVIDERS: ATTEND Family Medicine
DX: M18.11 Unilateral primary osteoarthritis of first carpometacarpal joint, right hand (principal)

== ENCOUNTER 2023-04-19 10:52 | Outpatient (CLI) | payer MEDICAID ==
[2023-04-19 18:15] LABS: BASOPHILS % (AUTO) 0.6 %; EOSINOPHILS # (AUTO) 0.3 10^3/uL (0.0-0.7); EOSINOPHILS % (AUTO) 4.3 %; HGB - HEMOGLOBIN 13.8 g/dL (12.0-16.0); LYMPHOCYTES # (AUTO) 1.2 10^3/uL (1.5-3.5); LYMPHOCYTES % (AUTO) 16.6 %; MEAN CORPUSCULAR HEMOGLOBIN 31.5 pg (27.0-31.0); MEAN CORPUSCULAR HGB CONC 32.9 g/dL (32.0-36.0); MEAN CORPUSCULAR VOLUME 95.9 fL (81.0-99.0); MEAN PLATELET VOLUME 10.2 fL (7.9-10.8); MONOCYTES # (AUTO) 0.5 10^3/uL (0.0-1.0); MONOCYTES % (AUTO) 7.1 %; NEUTROPHILS % (AUTO) 71.3 %; PLT - PLATELET COUNT 280 10^3/uL (130-450); RED BLOOD COUNT 4.38 10^6/uL (4.20-5.40); RED CELL DISTRIBUTION WIDTH 14.1 % (12.0-15.0); WHITE BLOOD COUNT 7.1 x10^3/uL (4.8-10.8)
[2023-04-19 18:41] LABS: ALBUMIN 3.9 g/dL (3.2-5.5); ALBUMIN/GLOBULIN RATIO 1.6 (1.0-2.2); ALKALINE PHOSPHATASE 117 IU/L (42-121); ALT ALANINE AMINOTRANSFERASE 22 IU/L (10-60); AST ASPARTATE AMINOTRANSFERASE 15 IU/L (10-42); BILIRUBIN,TOTAL 0.5 mg/dL (0.2-1.0); BUN - BLOOD UREA NITROGEN 15 mg/dL (6-20); CALCIUM 9.2 mg/dL (8.5-10.3); CARBON DIOXIDE - CO2 24 mmol/L (21-32); CHLORIDE 106 mmol/L (101-111); CHOL/HDL RATIO 3.9 (<4.4); CHOLESTEROL 130 mg/dL; CREATININE 0.8 mg/dL (0.6-1.3); GFR - MDRD 76 (>89); GLUCOSE 180 mg/dL (74-104); HDL CHOLESTEROL 33 mg/dL; LDL CHOLESTEROL,CALCULATED 57 mg/dL; LDL/HDL RATIO 1.7 (<4.4); POTASSIUM 4.1 mmol/L (3.5-4.5); SODIUM 139 mmol/L (135-145); TOTAL PROTEIN 6.4 g/dL (6.4-8.9); TRIGLYCERIDES 199 mg/dL (48-352); VLDL CHOLESTEROL 40 mg/dL
[2023-04-19 18:46] LABS: LITHIUM 0.37 mmol/L
[2023-04-19 18:54] LABS: THYROID STIMULATING HORMONE 2.14 uIU/mL (0.34-5.60)
[2023-04-19 21:02] LABS: ESTIMATED AVERAGE GLUCOSE 189 mg/dL (70-100); HEMOGLOBIN A1c% 8.2 % (4.27-6.07)
== END 2023-04-19 10:53 | disposition home or self-care (01) ==
LOC: LAB.N 10:52
PROVIDERS: ATTEND Internal Medicine
DX: E11.42 Type 2 diabetes mellitus with diabetic polyneuropathy (principal); E78.5 Hyperlipidemia, unspecified; F31.9 Bipolar disorder, unspecified; I10 Essential (primary) hypertension
CPT/HCPCS: 36415; 80053; 80061; 80178; 82043; 82570; 83036; 83721; 84443; 85025

== ENCOUNTER 2023-06-09 11:01 | Outpatient (CLI) | payer MEDICAID ==
[2023-06-09 17:57] LABS: BASOPHILS # (AUTO) 0.1 10^3/uL (0.0-0.1); BASOPHILS % (AUTO) 1.3 %; EOSINOPHILS # (AUTO) 0.3 10^3/uL (0.0-0.7); EOSINOPHILS % (AUTO) 5.6 %; HCT - HEMATOCRIT 47.6 % (37.0-47.0); HGB - HEMOGLOBIN 14.7 g/dL (12.0-16.0); LYMPHOCYTES # (AUTO) 1.1 10^3/uL (1.5-3.5); LYMPHOCYTES % (AUTO) 20.4 %; MEAN CORPUSCULAR HEMOGLOBIN 29.4 pg (27.0-31.0); MEAN CORPUSCULAR HGB CONC 30.9 g/dL (32.0-36.0); MEAN CORPUSCULAR VOLUME 95.2 fL (81.0-99.0); MEAN PLATELET VOLUME 10.2 fL (7.9-10.8); MONOCYTES # (AUTO) 0.5 10^3/uL (0.0-1.0); MONOCYTES % (AUTO) 8.7 %; NEUTROPHILS # (AUTO) 3.5 10^3/uL (1.5-6.6); NEUTROPHILS % (AUTO) 63.8 %; PLT - PLATELET COUNT 296 10^3/uL (130-450); RED CELL DISTRIBUTION WIDTH 14.1 % (12.0-15.0); WHITE BLOOD COUNT 5.5 x10^3/uL (4.8-10.8)
[2023-06-09 18:32] LABS: ALBUMIN 4.4 g/dL (3.2-5.5); ALBUMIN/GLOBULIN RATIO 1.6 (1.0-2.2); BILIRUBIN,TOTAL 0.7 mg/dL (0.2-1.0); CALCIUM 9.8 mg/dL (8.5-10.3); CREATININE 0.9 mg/dL (0.6-1.3); POTASSIUM 4.4 mmol/L (3.5-4.5); TOTAL PROTEIN 7.2 g/dL (6.4-8.9)
[2023-06-09 19:01] LABS: THYROID STIMULATING HORMONE 1.27 uIU/mL (0.34-5.60)
== END 2023-06-09 11:02 | disposition home or self-care (01) ==
LOC: LAB.N 11:01
PROVIDERS: ATTEND Nurse Practitioner Psychiatric/Mental Health
DX: F41.1 Generalized anxiety disorder (principal); F31.81 Bipolar II disorder; Z79.899 Other long term (current) drug therapy
CPT/HCPCS: 36415; 80053; 80178; 81003; 84443; 85025

== ENCOUNTER 2023-06-10 08:00 | Outpatient (CLI) | payer MEDICAID ==
[2023-06-10 18:10] LABS: BILIRUBIN,URINE NEGATIVE (NEGATIVE); GLUCOSE, URINE (UA) >=1000 mg/dL (NEGATIVE); KETONES,URINE (UA) NEGATIVE (NEGATIVE); LEUKOCYTE ESTERASE, URINE NEGATIVE (NEGATIVE); NITRITE,URINE NEGATIVE (NEGATIVE); OCCULT BLOOD,URINE NEGATIVE (NEGATIVE); PH,URINE 5.5 PH (5.0-7.5); PROTEIN,URINE NEGATIVE (NEGATIVE); UROBILINOGEN,URINE 0.2 (NORMAL) E.U./dL (NORMAL)
[2023-06-10 19:25] LABS: CLARITY,URINE CLEAR (CLEAR)
== END 2023-06-10 23:59 | disposition home or self-care (01) ==
LOC: LAB.R 08:00
PROVIDERS: ATTEND Nurse Practitioner Psychiatric/Mental Health
DX: F41.1 Generalized anxiety disorder (principal); F31.81 Bipolar II disorder; Z79.899 Other long term (current) drug therapy
CPT/HCPCS: 81003

== ENCOUNTER 2023-07-19 10:16 | Outpatient (CLI) | payer MEDICAID ==
[2023-07-19 12:38] LABS: ALBUMIN 4.3 g/dL (3.2-5.5); ALBUMIN/GLOBULIN RATIO 1.4 (1.0-2.2); BILIRUBIN,TOTAL 0.7 mg/dL (0.2-1.0); CALCIUM 9.6 mg/dL (8.5-10.3); CREATININE 0.9 mg/dL (0.6-1.3); POTASSIUM 4.2 mmol/L (3.5-4.5); TOTAL PROTEIN 7.4 g/dL (6.4-8.9)
[2023-07-19 12:49] LABS: LITHIUM 0.53 mmol/L
[2023-07-19 12:52] LABS: ESTIMATED AVERAGE GLUCOSE 151 mg/dL (70-100); HEMOGLOBIN A1c% 6.9 % (4.27-6.07)
[2023-07-19 13:06] LABS: THYROID STIMULATING HORMONE 1.07 uIU/mL (0.34-5.60)
== END 2023-07-19 10:17 | disposition home or self-care (01) ==
LOC: LAB.N 10:16
PROVIDERS: ATTEND Internal Medicine
DX: E11.42 Type 2 diabetes mellitus with diabetic polyneuropathy (principal); F31.9 Bipolar disorder, unspecified
CPT/HCPCS: 36415; 80053; 80178; 83036; 84443

== ENCOUNTER 2023-11-12 10:32 | Outpatient (CLI) | payer MEDICAID ==
[2023-11-12 18:39] LABS: LITHIUM 0.51 mmol/L
[2023-11-12 18:40] LABS: ALBUMIN 4.4 g/dL (3.2-5.5); ALBUMIN/GLOBULIN RATIO 1.5 (1.0-2.2); BILIRUBIN,TOTAL 0.7 mg/dL (0.2-1.0); CALCIUM 10.1 mg/dL (8.5-10.3); CREATININE 0.9 mg/dL (0.6-1.3); POTASSIUM 4.8 mmol/L (3.5-4.5); TOTAL PROTEIN 7.3 g/dL (6.4-8.9)
[2023-11-12 19:00] LABS: THYROID STIMULATING HORMONE 2.28 uIU/mL (0.34-5.60)
[2023-11-12 20:35] LABS: ESTIMATED AVERAGE GLUCOSE 148 mg/dL (70-100); HEMOGLOBIN A1c% 6.8 % (4.27-6.07)
== END 2023-11-12 10:33 | disposition home or self-care (01) ==
LOC: LAB.N 10:32
PROVIDERS: ATTEND Nurse Practitioner Psychiatric/Mental Health
DX: F31.81 Bipolar II disorder (principal); Z79.899 Other long term (current) drug therapy; E11.42 Type 2 diabetes mellitus with diabetic polyneuropathy
CPT/HCPCS: 36415; 80053; 80178; 81001; 81003; 83036; 84439; 84443

== ENCOUNTER 2023-11-24 08:00 | Outpatient (CLI) | payer MEDICAID ==
[2023-11-24 17:45] LABS: BILIRUBIN,URINE NEGATIVE (NEGATIVE); GLUCOSE, URINE (UA) 500 mg/dL (NEGATIVE); KETONES,URINE (UA) NEGATIVE (NEGATIVE); LEUKOCYTE ESTERASE, URINE SMALL (NEGATIVE); NITRITE,URINE POSITIVE (NEGATIVE); OCCULT BLOOD,URINE TRACE-INTA (NEGATIVE); PH,URINE 6.5 PH (5.0-7.5); PROTEIN,URINE NEGATIVE (NEGATIVE); UROBILINOGEN,URINE 0.2 (NORMAL) E.U./dL (NORMAL)
[2023-11-24 17:46] LABS: CLARITY,URINE HAZY (CLEAR)
[2023-11-24 18:06] LABS: BACTERIA,URINE Many /HPF (None Seen); RBC,URINE None Seen /HPF (0-5); SQUAMOUS EPITHELIAL CELL,UR NONE SEEN (<= Few)
== END 2023-11-24 23:59 | disposition home or self-care (01) ==
LOC: LAB.R 08:00
PROVIDERS: ATTEND Nurse Practitioner Psychiatric/Mental Health
DX: F31.81 Bipolar II disorder (principal); Z79.899 Other long term (current) drug therapy
CPT/HCPCS: 81001

== ENCOUNTER 2023-11-26 08:00 | Outpatient (CLI) | payer MEDICAID | END 2023-11-26 23:59 | disposition home or self-care (01) | LOC: LAB.N 08:00 | PROVIDERS: ATTEND Internal Medicine | DX: R35.0 Frequency of micturition (principal) | CPT/HCPCS: 87086 ==

== ENCOUNTER 2023-12-09 12:51 | Outpatient (CLI) | payer MEDICAID ==
--- NOTE | 2023-12-09 13:25 | Sleep Patient Instructions ---
Sleep Center Visit Summary - Patient Visit Information Reason for Visit: Annual follow-up - Patient Instructions Additional Instructions: You will continue with CPAP therapy with pressure changed to 13.6 cmH2O. A supply prescription will be updated with your DME. We encourage you to continue to try to lose weight. Please follow up with the sleep care office in 1 year. - Clinic Information Contact: [facility] [address] [place] [address] [email or web address] T: [phone]
--- NOTE | 2023-12-09 13:28 | SLEEP CARE CONSULTATION ---
Information from patient questionnaire entered by Mei Perry. I have reviewed and concur with the information entered by Mei Perry. This document represents the service I personally performed and the decisions made by , Marizol Blank ARNP. History of Present Illness Service Date and Time: 12/09/2023 1251 Previous diagnosis: Extremely Severe, Obstructive Sleep Apnea-Hypopnea Syndrome AHI: 147 Reason for follow up: annual (LAST SEEN 10/2022) Accompanied by: Jose,rosa (RESMED) Equipment type: CPAP ([employer] Airsense 10, s/u 06/2019) Equipment obtained from: [employer] (getting supplies as needed) Mask style: Nasal (Dreamwear) Mask brand: Respironics Backup mask available: Yes (old mask) Prior sleep studies: Yes Year and Where: 2006 [place] [facility] and 2013 [facility] titration HPI additional information: TYREL WRIGHT was diagnosed to have extremely severe, AHI 147, obstructive sleep apnea-hypopnea syndrome and returned today for CPAP therapy annual follow- up. Sleep Study - Results Prior sleep studies: Yes Year and Where: 2006 [place] [facility] and 2013 [facility] titration CPAP Compliance Data - Data Reviewed with Patient Average duration of nightly device use: 9 HRS 16 MINS Compliance rate %: 98 (12/06/22-12/05/23; 364/365 days used) Current pressure setting (cmH2O): 14 Average residual AHI: 1.6 Central apnea: 0.3 Obstructive apnea: 0.8 Hypopnea: 0.2 Subjective Missed days of use due to: reports: other (power outage) Patient concerns: reports: mask leak noise (positional). denies: aerophagia, mask discomfort, air blowing in eyes, condensation in mask/hose, nasal congestion, dry mouth, nose, throat, epistaxis Observed to snore while using device: No Current pressure setting perceived as: too high On therapy, patient: reports: sleeping better, awakening more refreshed, being more awake and alert during the day, more rested overall. denies: drowsiness while driving Initial [place] Sleepiness Scale score: 8 (in 2016) Current [place] Sleepiness Scale score: 9 (12/09/23) Allergies and Home Medications Known drug allergies: Yes (as listed) Drug allergies reviewed: Yes Home medication list reviewed: Yes (updated in EMR) Allergy and home medication list: Allergies adhesive tape Allergy (Verified 11/06/22 15:13) Rash erythromycin base Allergy (Verified 11/06/22 15:13) Rash Penicillins Allergy (Verified 11/06/22 15:13) Anaphylaxis sulfamethoxazole [From Bactrim] Allergy (Verified 11/06/22 15:13) Unknown trimethoprim [From Bactrim] Allergy (Verified 11/06/22 15:13) Unknown Review of Systems Review of systems same as previous: No (COPD, ASTHMA, THRUSH) Physical Exam Vital signs obtained and entered by: MEI Sanchez MA Blood Pressure: 122/79 (LEFT ARM) Cuff size: long Heart Rate: 101 O2 Saturation: 91 Height: 5 ft 5 in Weight: 247 lb Weight change since last visit: 32 lb loss Body Mass Index: 41.1 BMI Classification: Morbidly Obese Impression and Plan 1. Obstructive Sleep Apnea-Hypopnea Syndrome, extremely severe, with good treatment compliance and good apnea control. On CPAP therapy, the patient has better sleep quality and is more rested overall. She has lost over 30 pounds and feels like the pressure is too high. The patients pressure will be changed to autoCPAP 13.6 cmH20 for patient comfort. Patient advised to contact me if pressure change is uncomfortable so that it can be adjusted. Goals for apnea control discussed. Patient's apnea severity and rationale for treatment to reduce apnea, improve sleep quality and reduce cardiovascular and cerebrovascular events was reviewed. I also reviewed the benefit of consistent device use of CPAP for hypertension, diabetes, depression. 2. Obesity, unspecified. Currently patients BMI is 41.1. She has lost weight from being on Jardience for her diabetes. Obesity increases the risk of apnea, CPAP pressure requirements and overall health risks especially cardiovascular and diabetes. Thus patient is advised to continue to try to lose weight. * Change CPAP pressure to 13.6 cmH2O * Update supply prescription * Notify me if snoring with mask or feeling that the pressure is too much or too little * Continue to try to lose weight * Call this office if any problems using CPAP * Return for follow up in 12 months, or sooner if concerns arise Adjust device pressure to (cmH2O): 13.6 Counseling Topics: Spare mask, Weight loss health impact Prescriptions: Device supplies Follow up with Sleep Care in: 1 year Visit Type: In Office Time Spent with Patient (minutes): 20 Provider Statement: I spent 100% of the Face to Face Visit with the patient with greater than 50% spent counseling the patient and coordination of care.
[2023-12-09 13:29] VITALS: BP 122/79; O2SAT 91
== END 2023-12-09 12:52 | disposition home or self-care (01) ==
LOC: SC 12:51
PROVIDERS: ATTEND Nurse Practitioner Family
DX: G47.33 Obstructive sleep apnea (adult) (pediatric) (principal); E66.01 Morbid (severe) obesity due to excess calories; Z68.41 Body mass index [BMI] 40.0-44.9, adult
CPT/HCPCS: 99212; 99213

== ENCOUNTER 2024-03-10 10:24 | Outpatient (CLI) | payer MEDICAID ==
[2024-03-10 18:55] LABS: CALCIUM 9.7 mg/dL (8.5-10.3); CREATININE 0.9 mg/dL (0.6-1.3); POTASSIUM 4.9 mmol/L (3.5-4.5)
[2024-03-10 21:00] LABS: ESTIMATED AVERAGE GLUCOSE 134 mg/dL (70-100); HEMOGLOBIN A1c% 6.3 % (4.27-6.07)
== END 2024-03-10 10:25 | disposition home or self-care (01) ==
LOC: LAB.N 10:24
PROVIDERS: ATTEND Internal Medicine
DX: E11.42 Type 2 diabetes mellitus with diabetic polyneuropathy (principal)
CPT/HCPCS: 36415; 80048; 83036